=== PATIENT | female | born 1950 | race Hispanic/Latino ===

== ENCOUNTER 2018-10-13 13:44 | Inpatient (IN) | payer SELFPAY ==
[2018-10-13] MEDS ORDERED: Dexamethasone 20 MG/5 ML VIAL ONE (14:47)
[2018-10-13] MEDS ORDERED: Glycopyrrolate 0.2 MG/ML 5 ML SYRINGE ONE (14:47)
[2018-10-13] MEDS ORDERED: Ondansetron PF 4 MG/2 ML Vial ONE ×2 (14:47→15:47)
[2018-10-13] MEDS ORDERED: Rocuronium Bromide 10 MG/ML (10ML VIAL) ONE (14:47)
[2018-10-13] MEDS ORDERED: Lidocaine 1% PF 5 ML VIAL ONE (14:47)
[2018-10-13] MEDS ORDERED: PROPOFOL 200 MG/20 ML VIAL ONE (14:47)
[2018-10-13 14:54] LABS: Mean Corpuscular Hemoglobin 28.6 pg (27.0-31.0); Mean Corpuscular Volume 86.5 fL (78.0-98.0); Mean Platelet Volume 7.5 fL (7.4-10.4); Platelet Count 201 thou/uL (130-400); RBC Distribution Width 13.9 % (11.5-14.5); Red Blood Cell (RBC) Count 2.12 mill/uL (4.20-5.40); White Blood Cell (WBC) Count 14.9 thou/uL (4.8-10.8)
[2018-10-13 15:01] LABS: AST (SGOT) 14 U/L (5-34); Anion Gap 19 mmol/L (10-20); Bilirubin, Total 0.2 mg/dL (0.2-1.2); Calcium 8.3 mg/dL (7.8-10.44); Carbon Dioxide 14 mmol/L (23-31); Chloride 105 mmol/L (98-107); Potassium 5.4 mmol/L (3.5-5.1); Protein, Total 6.4 g/dL (6.0-8.3); Sodium 133 mmol/L (136-145)
[2018-10-13 15:17] LABS: ALT (SGPT) Less than 7 U/L (8-55); Albumin 2.8 g/dL (3.4-4.8); Alkaline Phosphatase 84 U/L (40-150); BUN (Urea Nitrogen) 57 mg/dL (9.8-20.1); Calc. Creatinine Clearance 0 mL/min (70-130); Estimated GFR-MDRD 7; Globulin 3.5 g/dL (2.4-3.5); Glucose 65 mg/dL (80-115); Lipase 117 U/L (8-78)
[2018-10-13 15:19] LABS: Band 33 % (5-11); Hypochromia SLIGHT = 6-15 cells (100X) (0-5/hpf); Lymphocytes 3 % (21-51); MDiff Complete? YES; Neutrophil 64 % (42-75); Platelet Morphology Comment Appears Adequate; Polychromasia SLIGHT = 2-3 cells (100X) (0-2/hpf)
--- NOTE | 2018-10-13 16:13 | CT ---
CT ABDOMEN AND PELVIS WITHOUT CONTRAST: 10/13/2018 PROVIDED CLINICAL HISTORY: Pelvic pain. FINDINGS: The visualized lung bases are free of significant opacity. There is bilateral severe hydronephrosis and severe hydroureter. There is a 6-7 mm calculus present within the proximal left ureter, at the level of the L3 vertebral body. The liver, spleen, pancreas, and adrenal glands appear unremarkable, suboptimally evaluated in the absence of IV contrast materia l. There are inflammatory changes present within the right lower quadrant, with foci of gas that appear to be extraluminal. The appendix is not distinctly identified. No definite focal fluid collection i s evident. The urinary bladder appears prominently enlarged. The osseous structures demonstrate no concerning lytic or blastic lesions. IMPRESSION: 1. Inflammatory fat stranding changes, extraluminal gas, and nonorganized extraluminal fluid present within the right lower quadrant, compatible with a perforated viscus. Differential considerations w ould include perforated appendicitis versus perforated colitis. Surgical consultation is recommended . 2. Severe bilateral hydronephrosis and hydroureter with an enlarged urinary bladder. There is a 6 t o 7 mm proximal left ureteral calculus; however, the entire ureter is dilated, and this does not appe ar to be the primary etiology of the hydronephrosis on the left. 3. Other chronic findings as above. 4. Findings were discussed with Dr. Child, via telephone, at 4:02 p.m. on 10/13/2018. CODE CR POS: [facility]
[2018-10-13] MEDS ORDERED: Piperacillin/Tazobactam 3.375 GM VIAL ONE (16:18)
[2018-10-13] MEDS ORDERED: Dextrose 50% Abboject 50 ML SYRINGE ONE (16:26)
[2018-10-13] MEDS ORDERED: Morphine 4 MG/ML VIAL ONE (16:50)
[2018-10-13 17:10] LABS: Bilirubin Negative (Negative); Blood, Urine Small (Negative); Clarity CLOUDY (Clear); Glucose, Urine (Dipstick) Negative (Negative); Leukocyte Large (Negative); Nitrite Negative (Negative); Protein, Urine (Dipstick) 30 mg/dL (Neg-Trace); Urobilinogen 0.2 mg/dL (0.2-1.0)
[2018-10-13 17:12] LABS: Bacteria/HPF 4+ HPF (None Seen); Hyaline Casts/LPF 7-10 HYALINE CAST LPF (0-3 Hyaline); Pathc Cast-AUWi Flag 1.76 (0-2.49); RBC/HPF 0-3 HPF (0-3); Squamous Epithelial 0-3 HPF (0-3)
--- NOTE | 2018-10-13 17:36 | HP ---
CHIEF COMPLAINT: Perforated viscus. HISTORY OF PRESENT ILLNESS: This is a 68-year-old female with a history of nausea, vomiting, and abdominal pain in the lower abdomen for the last several days. She presents with CT scan showing free air in the right lower quadrant, lots of strandy changes. She has also been found to be in acute renal insufficiency. The patient herself has no medical history. She denies taking any medicines every day. She never goes to the doctor, but specifically denies any issues with any previous abdominal surgery, any chronic kidney or heart disease. Denies diabetes. She has no family here, they are all in [place]. PAST MEDICAL HISTORY: Like above. PAST SURGICAL HISTORY: Above. MEDICINES: None. ALLERGIES: NO KNOWN DRUG ALLERGIES. SOCIAL HISTORY: She denies smoking or alcohol. REVIEW OF SYSTEMS: Otherwise negative unless described above. PHYSICAL EXAMINATION: VITAL SIGNS: Her pulse is 106, blood pressure is 120/84. She is afebrile. HEENT: Sclerae anicteric. Oropharynx clear. NECK: No lymphadenopathy. CHEST: Clear. HEART: Increased rate, regular rhythm without murmur. ABDOMEN: Soft. Diffused tender in the bilateral lower abdomen with guarding, rebound tenderness in the right lower quadrant. EXTREMITIES: No obvious ischemia or edema to extremities. LABORATORY DATA: White blood cell count is 14 with 33 bands, hemoglobin is 6, and platelet count is 201. Sodium 133, potassium 5.4, creatinine is 5.74, BUN is 57, lipase 117. ASSESSMENT: 1. Ruptured viscus. 2. Acute renal insufficiency, likely prerenal. 3. Unfortunately, her medical history is unknown. PLAN: She will need exploratory laparotomy. Dr. Cantrell said that she is safe to undergo surgery. Risks, benefits, and alternatives were discussed. She gives consent. We will give her 1 unit of blood. Job ID: [id number]
[2018-10-13] MEDS ORDERED: Lidocaine 2% Jelly 5 ML TUBE ONE (18:04)
[2018-10-13] MEDS ORDERED: Fentanyl 100 MCG/2 ML VIAL ONE ×2 (18:04)
[2018-10-13] MEDS ORDERED: Promethazine HCl 25 MG/ML VIAL IM PRN ×2 (20:06→20:58)
[2018-10-13] MEDS ORDERED: Ondansetron HCl/PF 4 MG/2 ML Vial IVP PRN (20:06)
[2018-10-13] MEDS ORDERED: Promethazine HCl 25 MG/ML VIAL SLOW IVP PRN (20:06)
--- NOTE | 2018-10-13 20:41 | OP ---
DATE OF PROCEDURE: 10/13/2018 PREOPERATIVE DIAGNOSIS: Ruptured sigmoid diverticulitis. POSTOPERATIVE DIAGNOSIS: Ruptured sigmoid diverticulitis. PROCEDURES PERFORMED: Sigmoid colectomy and colostomy by Dr. Raymundo without complication. ANESTHESIA: General. ESTIMATED BLOOD LOSS: Minimal. COMPLICATIONS: None. SPECIMEN: Colon. FINDINGS: There is one area of the colon with a large mouth ruptured diverticulum, purulence in the abdomen, no significant fecal peritonitis. DESCRIPTION OF PROCEDURE: The patient was taken to the operating room and laid supine on the operating room table. After general anesthetic was obtained, the abdomen was shaved, prepped, and draped in a sterile fashion. A midline incision was made. Abdominal cavity was entered without injury. NG tube was felt to be in good position in the stomach. There was purulence in the pelvis, mostly around the sigmoid colon, a small amount down around the appendix as well. The appendix and cecum were without evidence of inflammation or infection. There was no obvious mass in the entire exam of the colon. There were some nodular changes to the uterus down below the rectum, low sigmoid . The sigmoid colon is affixed to the left pelvic sidewall. In this area, there was a ruptured diverticulum. Pulling this away, there was free flow of stool into the abdomen. Contour stapler fired across the lower sigmoid colon below this. The peritoneal reflection was taken down. The left ureter was found and excluded from the dissection. Impact LigaSure was used to take the blood vessels going up the left colon after enough length was obtained in order to make a colostomy proximal. The abdomen was irrigated copiously using warm sterile solution until returns were clear. There was no other damage to any intraabdominal structures. The small bowel was run without injury. Ellipse of skin was taken out in the left abdomen. Cautery dissected down to the fascia and a cruciate incision was made in the fascia. The proximal colon was brought out through this site and held in place using a Assonet. Midline fascia was closed using #1 PDS from top to bottom and tied in the middle. Subcutaneous tissues were irrigated copiously using sterile solution. The skin was closed using skin clips and skin tomas with Telfa jose placed in between. The colon was cut just at the level of the skin. The specimen was sent to [facility] for final diagnosis. The colostomy was matured in the usual fashion using 3-0 Vicryl. An ostomy device was placed. The patient was sent to Recovery in stable condition. All instrument counts, needle counts, and lap counts were correct. Job ID: [id number]
[2018-10-13] MEDS ORDERED: Ondansetron PF 4 MG/2 ML Vial IVP PRN (20:58)
[2018-10-13] MEDS ORDERED: hydrALAZINE 20 MG/ML VIAL SLOW IVP PRN (20:58)
[2018-10-13] MEDS ORDERED: Dextrose 50% Abboject 50 ML SYRINGE SLOW IVP PRN (20:58)
[2018-10-13] MEDS ORDERED: Dextrose 5% in Water 1,000 ML IV PRN (20:58)
[2018-10-13] MEDS ORDERED: Ondansetron ODT 4 MG TAB PO PRN (20:58)
[2018-10-13] MEDS ORDERED: HumaLOG 300 UNITS/3 ML VIAL SC PRN (20:58)
[2018-10-13] MEDS ORDERED: Famotidine/PF 20 mg/2ml Vial SLOW IVP SCH ×2 (21:00→21:15)
[2018-10-13] MEDS: Fentanyl 100 MCG/2 ML VIAL SLOW IVP PRN (21:32)
[2018-10-13] MEDS: Acetaminophen 1,000 MG in Premix Bag 1 BAG IVPB PRN (21:34)
[2018-10-13] MEDS: Sodium Chloride 0.9% 1,000 ML IV SCH (21:35)
[2018-10-13 22:04] LABS: Vitamin B12 Greater than 2000 pg/mL (211-911)
[2018-10-13 23:03] LABS: Anion Gap 17 mmol/L (10-20); BUN (Urea Nitrogen) 52 mg/dL (9.8-20.1); Calc. Creatinine Clearance 8 mL/min (70-130); Calcium 8.2 mg/dL (7.8-10.44); Carbon Dioxide 13 mmol/L (23-31); Chloride 109 mmol/L (98-107); Estimated GFR-MDRD 8; Glucose 79 mg/dL (80-115); Potassium 5.4 mmol/L (3.5-5.1); Sodium 134 mmol/L (136-145)
--- NOTE | 2018-10-14 03:35 | CON ---
DATE OF CONSULTATION: 10/13/2018 CONSULTING PHYSICIAN: Dr. Child from ER and Dr. Raymnudo. REASON FOR CONSULT: Acute kidney injury, hyperkalemia. REASON FOR ADMISSION: Abdominal pain, pelvic pain. HISTORY OF PRESENT ILLNESS: This is a 68-year-old female with unknown past medical history with no regular medical followup, came to the hospital with abdominal pain. The patient apparently was fighting with this pain and urinary incontinence, overflow incontinence for the last 1 to 2 weeks and was actually seen in a clinic in [place] and some urine tests was done and was sent home. The patient apparently felt better and was taken to the hospital today and she had a CT scan, which showed bilateral hydronephrosis, elevated creatinine of 5.7 with a potassium of 5.4 and distended bladder. Garcia was inserted. She has also had a CT scan without contrast, which showed possible perforated viscus and plan is for emergent dialysis. Dr. Raymundo is planning to have emergent dialysis. PAST MEDICAL HISTORY: Not known. The patient denies any significant history. PAST SURGICAL HISTORY: None. HOME MEDICATIONS: None at this point. ALLERGIES: NO KNOWN DRUG ALLERGIES. SOCIAL HISTORY: Denies smoking or alcohol. FAMILY HISTORY: No significant disease. REVIEW OF SYSTEMS: CONSTITUTIONAL: Negative for weight loss or gain, ability to conduct usual activities. SKIN: Negative for rash, itching. EYES: Negative for double vision, pain. ENT/MOUTH: Negative for nose bleeding, neck stiffness, pain, tenderness. CARDIOVASCULAR: Negative for palpitations, dyspnea on exertion, orthopnea. RESPIRATORY: Negative for shortness of breath, wheezing, cough, hemoptysis, fever or night sweats. GASTROINTESTINAL: Negative for poor appetite, abdominal pain, heartburn, nausea, vomiting, constipation, or diarrhea. GENITOURINARY: Negative for urgency, frequency, dysuria, nocturia. MUSCULOSKELETAL: Negative for pain, swelling. NEUROLOGIC/PSYCHIATRIC: Negative for anxiety, depression. ALLERGY/IMMUNOLOGIC: Negative for skin rash, bleeding tendency. PHYSICAL EXAMINATION: GENERAL: This is a thin built female, in no apparent distress. VITAL SIGNS: Temperature 98.4, pulse 88, respiratory rate 18, and blood pressure 111/55. HEENT: Atraumatic, normocephalic. NECK: Supple. CV: S1 and S2 heard. RESPIRATORY: Clear. GI: Abdomen is soft, mildly tender. MUSCULOSKELETAL: No tenderness. No edema. DERMATOLOGIC: No skin rash. NEUROLOGIC: Alert and awake. PSYCHIATRIC: Normal mood and affect. LABORATORY DATA: Potassium is 5.4, BUN is 57, creatinine is 5.7, albumin is 2.8. ASSESSMENT AND PLAN: 1. Acute kidney injury, multifactorial, most likely prerenal plus urinary obstruction. Agree with Garcia for now. IV hydration as tolerated. Repeat labs closely. 2. Hyponatremia. 3. Hyperkalemia. Limit potassium. 4. Metabolic acidosis. 5. Hypoalbuminemia. Check urine studies. 6. Anemia. We will check iron studies and B12. 7. Pyuria. Follow up cultures. Continue antibiotic. Continue supportive care. Avoid nephrotoxins and recheck labs. No acute indication for dialysis. Monitor renal function after the Garcia placement and the urine output, she made almost 700 to 800 mL of urine after the Garcia placed within 2 hours. We will continue to follow. Thank you for the consult. Job ID: [id number]
[2018-10-14] MEDS: Sodium Chloride 0.9% 1,000 ML IV SCH (05:08)
[2018-10-14 05:49] LABS: Anion Gap 11 mmol/L (10-20); BUN (Urea Nitrogen) 53 mg/dL (9.8-20.1); Calc. Creatinine Clearance 8 mL/min (70-130); Calcium 8.4 mg/dL (7.8-10.44); Carbon Dioxide 17 mmol/L (23-31); Chloride 111 mmol/L (98-107); Estimated GFR-MDRD 9; Glucose 79 mg/dL (80-115); Iron Binding Capacity, Total 130 mcg/dL (265-497); Potassium 5.6 mmol/L (3.5-5.1); Sodium 133 mmol/L (136-145)
[2018-10-14 06:04] LABS: Iron Less than 8 ug/dL (50-170)
[2018-10-14] MEDS: Acetaminophen 1,000 MG in Premix Bag 1 BAG IVPB PRN (08:46)
[2018-10-14] MEDS ORDERED: Prevnar 13-Val Conj/PF 0.5 ML SYRINGE IM ONE (09:00)
[2018-10-14 10:20] LABS: Band 32 % (5-11); Hemoglobin 6.7 g/dL (12.0-16.0); Lymphocytes 2 % (21-51); MDiff Complete? YES; Mean Corpuscular HGB CONC 32.4 g/dL (32.0-36.0); Mean Corpuscular Hemoglobin 28.5 pg (27.0-31.0); Mean Corpuscular Volume 87.9 fL (78.0-98.0); Mean Platelet Volume 7.6 fL (7.4-10.4); Monocytes 2 % (0-10); Neutrophil 64 % (42-75); Platelet Count 212 thou/uL (130-400); Platelet Morphology Comment Appears Adequate; RBC Distribution Width 13.7 % (11.5-14.5); Red Blood Cell (RBC) Count 2.34 mill/uL (4.20-5.40)
[2018-10-14 10:43] LABS: Actual Bicarbonate (HCO3a) 11.3 mEq/L (22-28); Base Excess (BEa) -14.4 mEq/L (-2.0 to +3.0); CO2 Tension 26.1 mmHg (35.0-45.0); Carboxyhemoglobin (COHb) 1.4 gm% (0.0-3.0); Hemoglobin (Hb) 7.4 g/dL (12.0-16.0); O2 Tension (PaO2) 84.6 mmHg (> 80.0); pH, Arterial 7.26 (7.35-7.45)
[2018-10-14 11:19] LABS: ALV-art Gradient 32.505 (0-20); Puncture Site RRA
[2018-10-14] MEDS ORDERED: Sodium Bicarbonate 150 MEQ in Dextrose 5% in Water 850 ML IV SCH (11:30)
--- NOTE | 2018-10-14 12:02 | PDOC.GSPN ---
Surgery Progress Note: Subj - Subjective Narrative: Pain controlled, hemodynamically stable. No nausea. Surgery Progress Note: Obj - Vital signs Vital signs: Vital Signs - Most Recent Temp Pulse Resp BP Pulse Ox 97.9 F 100 10/14/18 11:00 10/14/18 07:44 - Physical Exam General: no distress Respiratory: clear to auscultation Abdomen: soft, appropriately tender Wound: dressing clean,dry,intact Surgery Progress Note: Results - Labs Result Diagrams: 10/14/18 08:42 10/14/18 04:40 Lab results: Laboratory Results - last 24 hr 10/14/18 10/14/18 10/14/18 04:40 04:40 08:42 WBC 12.0 H RBC 2.34 L Hgb 6.7 L Hct 20.5 L MCV 87.9 MCH 28.5 MCHC 32.4 RDW 13.7 Plt Count 212 MPV 7.6 Neutrophils % (Manual) 64 Band Neuts % (Manual) 32 H Lymphocytes % (Manual) 2 L Monocytes % (Manual) 2 Plt Morphology Comment Appears Adequate Specimen Type Puncture Site Bicarbonate Actual ABG pH ABG pCO2 ABG pO2 ABG O2 Sat Calc/Juan Carlos ABG O2 Content ABG Base Excess ABG Hematocrit ABG Hemoglobin ABG Oxyhemoglobin ABG Carboxyhemoglobin ABG Methemoglobin ABG Deoxyhemoglobin Dogu Test A-a O2 Gradient Ionized Calcium Mode of Support Inspired O2 Sodium 133 L Potassium 5.6 H Chloride 111 H Carbon Dioxide 17 L Anion Gap 11 BUN 53 H Creatinine 5.01 H Estimated GFR (MDRD) 9 Glucose 79 L Calcium 8.4 Iron Less than 8 L TIBC 130 L % Saturation TNP Ferritin 150.00 10/14/18 10:35 WBC RBC Hgb Hct MCV MCH MCHC RDW Plt Count MPV Neutrophils % (Manual) Band Neuts % (Manual) Lymphocytes % (Manual) Monocytes % (Manual) Plt Morphology Comment Specimen Type ARTERIAL Puncture Site RRA Bicarbonate Actual 11.3 L ABG pH 7.26 L ABG pCO2 26.1 L ABG pO2 84.6 H ABG O2 Sat Calc/Juan Carlos 95.3 ABG O2 Content 9.9 L ABG Base Excess -14.4 L ABG Hematocrit 22.0 L ABG Hemoglobin 7.4 L ABG Oxyhemoglobin 93.7 L ABG Carboxyhemoglobin 1.4 ABG Methemoglobin 0.30 ABG Deoxyhemoglobin 4.6 H Doug Test POSITIVE A-a O2 Gradient 32.505 H Ionized Calcium 1.20 Mode of Support RA Inspired O2 21 Sodium 134 L Potassium 5.30 Chloride 112 H Carbon Dioxide Anion Gap BUN Creatinine Estimated GFR (MDRD) Glucose Calcium Iron TIBC % Saturation Ferritin Surgery Progress Note: A/P - Problem (1) Perforated sigmoid colon Current Visit: Yes Code(s): K63.1 - PERFORATION OF INTESTINE (NONTRAUMATIC) Status: Acute Assessment and Plan: Postop day 1 sigmoid colectomy -NG out tomorrow (2) Acute renal failure Current Visit: Yes Status: Acute Assessment and Plan: Acute on chronic -Appreciate Alina Alford assistance -dialyis - Plan Plan: Hopefully NG out tomorrow and start clears.
[2018-10-14] MEDS: metroNIDAZOLE 500 MG in Premix Bag 1 BAG IVPB SCH ×3 (12:13→23:46)
[2018-10-14 13:12] LABS: HBSAg Index 0.31 S/CO (0-0.99); Hep B Surf Ag Non-Reactive S/CO (NonReactive)
[2018-10-14 13:13] LABS: HBSAB Concentration 0.99 mIU/mL; Hep B Surf AB Non-Reactive (NonReactive)
[2018-10-14] MEDS ORDERED: Sodium Chloride 0.9% 1,000 ML IV SCH (13:30)
--- NOTE | 2018-10-14 13:52 | PRG ---
DATE OF SERVICE: 10/14/2018 SUBJECTIVE: A 68-year-old female, being seen for acute kidney injury. The patient denies any complaints. OBJECTIVE: CONSTITUTIONAL: The patient is awake and alert. VITAL SIGNS: Afebrile, pulse 81, breathing 16, blood pressure 91/51. GENERAL APPEARANCE AND MENTAL STATUS: Fair. HEAD/NECK: Normocephalic. Atraumatic. EYES: EOMI. No deformity. EARS: Clear. No ulcers. NOSE: Intact. No lesions. MOUTH: Clear. No discharge. THROAT: Clear. No exudate. LUNGS: Clear. No crackles. CARDIAC: S1, S2. No rub. ABDOMEN: Benign. Bowel sounds positive. GENITALIA/RECTUM: Garcia absent. BACK/EXTREMITIES: Edema 0+. NEUROLOGICAL: Alert and motor intact. SKIN: LYMPHATICS: LABORATORY DATA: Reviewed. ASSESSMENT AND PLAN: 1. Stage 5 chronic kidney disease with acidosis, plan bicarb drip. 2. Hyperkalemia. Repeat potassium was 5.3. 3. Anemia. We would recommend transfusion. 4. Hydronephrosis. We would recommend Urology consultation. If potassium does not improve, we will consider renal replacement therapy. I have advised the primary team, blood should have high potassium, so we need to monitor potassium closely. Job ID: [id number]
--- NOTE | 2018-10-14 15:39 | ULT ---
BILATERAL UPPER EXTREMITY VENOUS DOPPLER ULTRASOUND FOR DIALYSIS ACCESS: Date: 10/14/18 HISTORY: End-stage renal disease. FINDINGS: RIGHT UPPER EXTREMITY: The right cephalic vein measures 1.9 mm in the proximal arm, 2.7 mm in the mid arm, 2.3 mm in the dis jb arm, 3.4 mm in the antecubital fossa, 1.1 mm in the proximal forearm, 0.8 mm in the mid forearm, and 0.7 mm in the distal forearm. The right basilic vein measures 1.8 mm in the proximal arm, 1.5 mm in the mid arm, 1.5 mm in the dist al arm, 1.8 mm in the antecubital fossa, 1.4 mm in the proximal forearm, 1.1 mm in the mid forearm, a nd 0.8 mm in the distal forearm. The right brachial artery measures 4.9 mm, radial artery measures 2.4 mm, and ulnar artery measures 1 .4 mm. LEFT UPPER EXTREMITY: The left cephalic vein in the proximal arm and the proximal forearm are not seen. The left cephalic v ein in the mid arm measures 1.6 mm, 0.8 mm in the distal arm, 1.4 mm in the antecubital fossa, 1.0 mm in the mid forearm, and 1.1 mm in the distal forearm. The left basilic vein measures in the proximal arm is not visualized. It measures 4.4 mm in the mid a rm, 1.9 mm in the distal arm, 1.8 mm in the antecubital fossa, 1.6 mm in the proximal forearm, 1.4 mm in the mid forearm, and 1.0 mm in the distal forearm. The left brachial artery measures 4.2 mm, radial artery measures 2.2 mm, and ulnar artery measures 1. 4 mm. POS: [facility]
--- NOTE | 2018-10-14 16:01 | PDOC.PULCN ---
Pulmonology Consult: HPI - Date of Consult Date: 10/14/18 Time: 10:00 - Consult Details Reason for Consult: Sepsis Requesting Physician: Breanne - History of Present Illness HPI: ECTOR MEYER is a 68 year-old F w/ unknown PMH presented to ED with NV and RLQ pain, discovered to have abnormal ct abdomen and subsequently discovered perforated viscus during ex lap resulting in hemicolectomy. CT scan noted b/l hydronephrosis and on admission pt noted to be anemic, transfused 1U prbcs. Today pt has no complaints although on speaking with pt she does report an approx 1 year history of vaginal bleeding which could be contributing to the anemia. Pulmonology Consult: ROS - Review of Systems Constitutional: negative: fever, chills Cardiovascular: negative: chest pain, palpitations Respiratory: no reported symptoms Pulmonology Consult: PMH Past Medical History: unknown - Family History Family history: reviewed and not pertinent - Social History Smoking Status: Never smoker Alcohol Use: pt denies any use Drug Use History: none Living Situation: independent Pulmonology Consult: Meds - Medications MAR Reviewed: Yes Medications: Current Medications Albuterol/Ipratropium (Duoneb) 3 ml NEB Q4H PRN PRN Reason: Wheezing Dextrose/Water (Dextrose 50%) 25 gm SLOW IVP PRN PRN PRN Reason: Hypoglycemia Famotidine (Pepcid) 20 mg SLOW IVP QPM SANDRA Fentanyl (Sublimaze) 25 mcg SLOW IVP Q2H PRN PRN Reason: Mild Pain (1-3) Fentanyl (Sublimaze) 50 mcg SLOW IVP Q2H PRN PRN Reason: Moderate to Severe Pain (6-10) Last Admin: 10/13/18 21:32 Dose: 50 mcg Glucagon (Glucagon) 1 mg IM PRN PRN PRN Reason: Hypoglycemia Hydralazine HCl (Apresoline) 10 mg SLOW IVP Q4H PRN PRN Reason: SBP > 170 or DBP > 100 Acetaminophen 1,000 mg/ Device 100 mls @ 400 mls/hr IVPB Q6H PRN PRN Reason: Fever/Mild Pain Stop: 10/14/18 20:59 Last Admin: 10/14/18 08:46 Dose: 100 mls Dextrose/Water (D5w) 1,000 mls @ 0 mls/hr IV .Q0M PRN PRN Reason: Hypoglycemia Metronidazole 500 mg/ Device 100 mls @ 100 mls/hr IVPB Q6HR SANDRA Last Admin: 10/14/18 12:13 Dose: 100 mls Ciprofloxacin/Dextrose 400 mg/ (Device) 200 mls @ 200 mls/hr IVPB 1000 SANDRA Last Admin: 10/14/18 10:10 Dose: 200 mls Sodium Bicarbonate 150 meq/ (Dextrose/Water) 1,000 mls @ 75 mls/hr IV [facility] Stop: 10/15/18 00:49 Last Admin: 10/14/18 12:13 Dose: 1,000 mls Insulin Human Lispro (Humalog) 0 units SC .MILD SLIDING SCALE PRN PRN Reason: Mild Correctional Scale Ondansetron HCl (Zofran Odt) 4 mg PO Q6H PRN PRN Reason: Nausea/Vomiting Ondansetron HCl (Zofran) 4 mg IVP Q6H PRN PRN Reason: Nausea Promethazine HCl (Phenergan) 12.5 mg IM Q4H PRN PRN Reason: Nausea Sodium Chloride (Flush - Normal Saline) 10 ml IVF PRN PRN PRN Reason: Saline Flush - Allergies Allergies/Adverse Reactions: Allergies Allergy/AdvReac Type Severity Reaction Status Date / Time No Known Allergies Allergy Verified 10/14/18 01:15 Pulmonology Consult: PE - Physical Exam Constitutional: NAD HEENT: PERRLA, moist MMs Neck: no nodes, no JVD Cardiovascular: RRR, no significant murmur Respiratory: clear to auscultation anteriorly, clear to auscultation bilaterally Gastrointestinal: soft Deviation from normal: TTP, sluggish BS Musculoskeletal: no edema, pulses present Neurological: non-focal, moves all 4 limbs Psychiatric: normal affect Skin: no rash, cap refill <2 seconds Pulmonology Consult: Results - Labs Result Diagrams: 10/15/18 04:25 10/15/18 04:25 - ABG Interpretation Attestation: I reviewed and interpreted this ABG. ABG Results: ABG pH 7.26 (7.35-7.45) L 10/14/18 10:35 ABG pCO2 26.1 mmHg (35.0-45.0) L 10/14/18 10:35 ABG O2 Sat Calc/Juan Carlos 95.3 % (94.0-98.0) 10/14/18 10:35 ABG Base Excess -14.4 mEq/L (-2.0 to +3.0) L 10/14/18 10:35 Interpretation: metabolic acidosis Pulmonology Consult: A/P - Time Time: 50% of the time was spent in coordination of care (as documented) at patient's floor/unit and/or counseling patient. Time with Patient: greater than 50 minutes - Plan Plan: 1) severe sepsis 2/2 perforated viscous - rx cipro flagyl - pt maintaining MAP and s/p 2L NS - continue to monitor UOP and pressures. - Likely ok to transfer out of ICU later today pending stable BP throughout day 2)KIM: likely mixed etiology - ct showed b/l hydronephrosis, stone noted; however ureteral dilation was entire ureter and distended bladder not c/w stone. 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 Collins. I agree with the History, Examination, Assessment and Plan documented above with any addition or exceptions noted below. 70 minutes have been devoted to this patient in various activities. I personally reviewed all imaging studies and laboratory data noted within this document. For fifty percent of this time, I was interacting with the patient at the bedside or coordinating care with the care team. For the remainder of the time I was immediately available to the patient in the hospital unit.
[2018-10-14] MEDS: Famotidine/PF 20 mg/2ml Vial SLOW IVP SCH (21:35)
[2018-10-15] MEDS: metroNIDAZOLE 500 MG in Premix Bag 1 BAG IVPB SCH (05:06)
[2018-10-15 06:40] LABS: Anion Gap 13 mmol/L (10-20); BUN (Urea Nitrogen) 55 mg/dL (9.8-20.1); Calc. Creatinine Clearance 10 mL/min (70-130); Calcium 8.2 mg/dL (7.8-10.44); Carbon Dioxide 18 mmol/L (23-31); Chloride 112 mmol/L (98-107); Estimated GFR-MDRD 10; Glucose 112 mg/dL (80-115); Magnesium 1.7 mg/dL (1.6-2.6); Potassium 4.7 mmol/L (3.5-5.1); Sodium 138 mmol/L (136-145)
[2018-10-15 06:43] LABS: Band 3 % (5-11); Hemoglobin 7.9 g/dL (12.0-16.0); Hypochromia SLIGHT = 6-15 cells (100X) (0-5/hpf); Lymphocytes 2 % (21-51); MDiff Complete? YES; Mean Corpuscular HGB CONC 32.7 g/dL (32.0-36.0); Mean Corpuscular Hemoglobin 29.1 pg (27.0-31.0); Mean Corpuscular Volume 88.8 fL (78.0-98.0); Mean Platelet Volume 7.4 fL (7.4-10.4); Monocytes 1 % (0-10); Neutrophil 94 % (42-75); Platelet Count 236 thou/uL (130-400); Platelet Morphology Comment Appears Adequate; RBC Distribution Width 13.6 % (11.5-14.5); Red Blood Cell (RBC) Count 2.72 mill/uL (4.20-5.40); White Blood Cell (WBC) Count 13.5 thou/uL (4.8-10.8)
[2018-10-15] MEDS: Sodium Chloride 0.9% 1,000 ML IV SCH (07:17)
[2018-10-15] MEDS: Fentanyl 100 MCG/2 ML VIAL SLOW IVP PRN ×5 (07:51→23:46)
[2018-10-15 08:56] LABS: Phosphorus 5.4 mg/dL (2.3-4.7)
[2018-10-15] MEDS ORDERED: Magnesium 2 GM/50 ML 2 GM in Premix Bag 1 BAG IVPB SCH (10:00)
--- NOTE | 2018-10-15 10:13 | PRG ---
DATE OF SERVICE: 10/15/2018 SERVICE: Pulmonary Medicine. INTERVAL HISTORY: The patient is doing fine from respiratory standpoint. Her abdominal discomfort is a little bit worse today. Denies any chest pain, fevers, or chills. She is yet to have anything out of her ostomy. That being said, she indicates that she is hungry. There has been no interval change to her condition otherwise. Her urine output has been excellent. PHYSICAL EXAMINATION: VITAL SIGNS: Afebrile. Pulse 79, blood pressure 113/60, respirations 16, saturation 96% on room air. GENERAL: The patient is awake and alert, in no apparent distress. LUNGS: Decent air entry. There is no prolonged expiratory phase. No crackles or wheezing appreciated. HEART: Normal rate and regular. ABDOMEN: Soft. Tender to palpation throughout. Bowel sounds are hypoactive. There is no guarding. LABORATORY DATA: WBC 13.5, hemoglobin 7.9, showing an appropriate rise with the unit of blood she got, platelets 236,000. Neutrophil count is 94% on top of 3% bands. Band count has precipitously fallen. Creatinine 4.21 and downtrending, BUN is stable at 55. Bicarb is up trending, chloride 112 and stable. Sodium 138. Basic metabolic profile is otherwise unremarkable except for a magnesium of 1.7. Potassium has fallen to 4.7. Urinalysis is positive for pyuria. Urine culture is growing E. coli. This is an organism that is sensitive to Zosyn and meropenem. ASSESSMENT: 1. Severe sepsis, resolving. 2. Gross peritonitis secondary to perforated viscus. 3. Acute kidney injury. 4. Iron-deficiency anemia. 5. Dysfunctional uterine bleeding. DISCUSSION AND PLAN: I will replace magnesium and switch over to half-normal saline at 75 an hour. She will need an outpatient ADVERTISING DIRECTOR consultation. Antibiotics will be switched from Cipro and Flagyl over to meropenem, so that we cover this organism a little bit more specifically. At this point, she is stable for transition to the surgical unit. When she arrives there, she will have no further requirements for inpatient Pulmonary critical care opinion, and I will sign off. Please call with additional questions or concerns through time. Job ID: [id number]
[2018-10-15] MEDS: Sodium Chloride 0.45% 1,000 ML IV SCH ×2 (10:14→23:47)
[2018-10-15] MEDS: MEROPENEM 1 GM/50 ML 1 GM in Premix Bag 1 BAG IVPB SCH (10:34)
--- NOTE | 2018-10-15 10:53 | PDOC.GSPN ---
Surgery Progress Note: Subj - Subjective Patient reports: still having pain Narrative: 68 y/o female presents for bowel perforation and acute kidney injury. No new complaints today, but still having pain, which has been improved with Fentanyl. Has been tolerating ice chips PO. Producing urine, no colostomy output. Faroese speaking only, family at bedside. Surgery Progress Note: Obj - Vital signs Vital signs: Vital Signs - Most Recent Temp Pulse Resp BP Pulse Ox 98.3 F 84 20 107/58 L 96 10/15/18 09:00 10/14/18 18:49 10/14/18 18:49 10/14/18 18:49 10/15/18 08:00 - Physical Exam General: no distress, other (mild pain) ENT: normal mucosa, other (NGT in place, minimal output today) Cardiovascular: regular rate and rhythm, no murmur Respiratory: clear to auscultation, normal expansion, normal respiratory effort , breath sounds present Abdomen: soft, other (mild diffuse tenderness to palpation, hypoactive bowel sounds. Colostomy in place with no output, healthy appearing bowel.) Genitourinary (Female): other (Garcia catheter in place, with 250 ml output since this morning at 0700) Surgery Progress Note: Results - Labs Result Diagrams: 10/15/18 04:25 10/15/18 04:25 Lab results: Laboratory Results - last 24 hr 10/15/18 10/15/18 10/15/18 04:25 04:25 04:25 WBC 13.5 H RBC 2.72 L Hgb 7.9 L Hct 24.2 L MCV 88.8 MCH 29.1 MCHC 32.7 RDW 13.6 Plt Count 236 MPV 7.4 Neutrophils % (Manual) 94 H Band Neuts % (Manual) 3 L Lymphocytes % (Manual) 2 L Monocytes % (Manual) 1 Hypochromia SLIGHT = 6-15 cells Plt Morphology Comment Appears Adequate Sodium 138 Potassium 4.7 Chloride 112 H Carbon Dioxide 18 L Anion Gap 13 BUN 55 H Creatinine 4.21 H Estimated GFR (MDRD) 10 Glucose 112 Calcium 8.2 Phosphorus 5.4 H Magnesium 1.7 Surgery Progress Note: A/P - Problem (1) Perforated sigmoid colon Current Visit: Yes Code(s): K63.1 - PERFORATION OF INTESTINE (NONTRAUMATIC) Status: Acute Assessment and Plan: Tolerating ice chips PO. No NGT output, no colostomy output. Hypoactive bowel sounds. Pain controlled with Fentanyl prn. Cleared to remove NGT and start PO liquids. (2) Acute renal failure Current Visit: Yes Status: Acute Assessment and Plan: Increasing urine output. Hold dialysis. - Plan Plan: Cleared by Dr. Mancia for move to [place] [id number]. Pt requesting note for daughter from [place] to care for her. Addendum - Physician - Physician Attestation Date/Time: 10/15/18 1237 I personally performed or re-performed the physical examination and medical decision making. I have verified all student documentation or findings, including history, physical exam and/or medical decision making.
--- NOTE | 2018-10-15 13:08 | PRG ---
DATE OF SERVICE: 10/15/2018 SUBJECTIVE: A 68-year-old female being seen for acute kidney injury. The patient denied nausea, vomiting, or chest pain. OBJECTIVE: CONSTITUTIONAL: The patient is awake, alert, in no acute distress. VITAL SIGNS: Afebrile. Pulse 84, breathing 16, blood pressure 128/68. GENERAL APPEARANCE AND MENTAL STATUS: Fair. HEAD/NECK: Normocephalic. Atraumatic. EYES: EOMI. No deformity. EARS: Clear. No ulcers. NOSE: Intact. No lesions. MOUTH: Clear. No discharge. THROAT: Clear. No exudate. LUNGS: Clear. No crackles. CARDIAC: S1, S2. No rub. ABDOMEN: Benign. Bowel sounds positive. GENITALIA/RECTUM: Garcia absent. BACK/EXTREMITIES: Edema 0+. NEUROLOGICAL: Alert and motor intact. SKIN: LYMPHATICS: LABORATORY DATA: Lab showed hemoglobin 7.9, creatinine 4.2. IMPRESSION AND PLAN: 1. Acute kidney injury, improved. 2. Hypertension, stable. 3. Anemia, stable. 4. Hyperlipidemia, stable. 5. Metabolic acidosis. Continue bicarbonate. No indication for dialysis. Job ID: [id number]
[2018-10-15] MEDS: Famotidine/PF 20 mg/2ml Vial SLOW IVP SCH (20:21)
[2018-10-16] MEDS: Fentanyl 100 MCG/2 ML VIAL SLOW IVP PRN ×4 (04:43→19:58)
[2018-10-16 05:38] LABS: Anion Gap 13 mmol/L (10-20); BUN (Urea Nitrogen) 46 mg/dL (9.8-20.1); Calc. Creatinine Clearance 13 mL/min (70-130); Carbon Dioxide 16 mmol/L (23-31); Chloride 110 mmol/L (98-107); Estimated GFR-MDRD 13; Potassium 5.1 mmol/L (3.5-5.1); Sodium 134 mmol/L (136-145)
[2018-10-16 05:43] LABS: Glucose 59 mg/dL (80-115)
[2018-10-16 05:57] LABS: Band 13 % (5-11); Hemoglobin 7.9 g/dL (12.0-16.0); Lymphocytes 6 % (21-51); MDiff Complete? YES; Mean Corpuscular HGB CONC 31.8 g/dL (32.0-36.0); Mean Corpuscular Hemoglobin 28.7 pg (27.0-31.0); Mean Corpuscular Volume 90.2 fL (78.0-98.0); Mean Platelet Volume 6.9 fL (7.4-10.4); Monocytes 4 % (0-10); Neutrophil 77 % (42-75); Platelet Count 246 thou/uL (130-400); Platelet Morphology Comment Appears Adequate; RBC Distribution Width 13.8 % (11.5-14.5); Red Blood Cell (RBC) Count 2.75 mill/uL (4.20-5.40); White Blood Cell (WBC) Count 14.9 thou/uL (4.8-10.8)
[2018-10-16] MEDS: MEROPENEM 1 GM/50 ML 1 GM in Premix Bag 1 BAG IVPB SCH (10:09)
[2018-10-16] MEDS ORDERED: Sodium Chloride 0.45% 1,000 ML IV SCH (11:48)
--- NOTE | 2018-10-16 12:17 | PRG ---
DATE OF SERVICE: 10/16/2018 SERVICE: Pulmonary Medicine. INTERVAL HISTORY: The patient is doing fine from respiratory standpoint. Breathing comfortably. Denies any current chest pain, fevers, or chills. She is going to the floor today. She finally got a room. Otherwise, her belly pain is much better. She continues to make urine and has no other complaints. PHYSICAL EXAMINATION: VITAL SIGNS: Afebrile, pulse 91, blood pressure 125/64, respirations are 21, and saturation 98% on room air. GENERAL: The patient is awake and alert, in no apparent distress. LUNGS: Excellent air entry. No prolonged expiratory phase or wheezing present. No crackles. HEART: Normal rate and regular. ABDOMEN: Soft, nontender, and nondistended. Bowel sounds are positive. MUSCULOSKELETAL: No cyanosis or clubbing. No pitting in the bilateral lower extremities. NEUROLOGIC: Grossly nonfocal. LABORATORY DATA: WBC 14.9, hemoglobin 7.9 and stable, and platelets are 246,000. Creatinine downtrending to 3.45, potassium 5.1, sodium 134. Basic metabolic profile is otherwise unremarkable. Bicarb is gently downtrending to 16, though the anion gap stays stable. Phosphorus 5.4. Blood sugar ranges from 95 to 59. ASSESSMENT: 1. Severe sepsis, resolving. 2. Gross peritonitis secondary to perforated viscus, status post laparotomy. 3. Acute kidney injury. 4. Iron-deficiency anemia. 5. Dysfunctional uterine bleeding. DISCUSSION AND PLAN: We will drop our half-normal saline to 50 mL/hr. Antibiotic coverage will continue. At this point, the patient has no requirements for inpatient Pulmonary Critical Care opinion. When she lands on the floor, I will sign off. Please call with additional questions or concerns through time. Were she to having recrudescence in her sepsis profile, antifungal coverage should be considered. Job ID: [id number]
[2018-10-16] MEDS ORDERED: Sodium Bicarbonate 150 MEQ in Dextrose 5% in Water 1,000 ML IV SCH (12:30)
--- NOTE | 2018-10-16 12:35 | PRG ---
DATE OF SERVICE: 10/16/2018 SUBJECTIVE: A 68-year-old female being seen for acute kidney injury. The patient denies any nausea, vomiting, or chest pain. OBJECTIVE: CONSTITUTIONAL: The patient is awake, alert, in no acute distress. VITAL SIGNS: Afebrile. Pulse 85, breathing 16, blood pressure 125/64. GENERAL APPEARANCE AND MENTAL STATUS: Fair. HEAD/NECK: Normocephalic. Atraumatic. EYES: EOMI. No deformity. EARS: Clear. No ulcers. NOSE: Intact. No lesions. MOUTH: Clear. No discharge. THROAT: Clear. No exudate. LUNGS: Clear. No crackles. CARDIAC: S1, S2. No rub. ABDOMEN: Benign. Bowel sounds positive. GENITALIA/RECTUM: Garcia absent. BACK/EXTREMITIES: Edema 0+. NEUROLOGICAL: Alert and motor intact. SKIN: LYMPHATICS: LABORATORY DATA: Reviewed. IMPRESSION AND PLAN: 1. Chronic kidney injury, stage 5, stable. 2. Acute kidney injury, improving. 3. Metabolic acidosis, on bicarbonate drip. 4. Hyperkalemia, stable. No indication for dialysis at this time. Job ID: [id number]
--- NOTE | 2018-10-16 13:29 | PDOC.GSPN ---
Surgery Progress Note: Subj - Subjective Patient reports: no new complaints (no nausea) Surgery Progress Note: Obj - Vital signs Vital signs: Vital Signs - Most Recent Temp Pulse Resp BP Pulse Ox 97.6 F 93 16 137/75 100 10/16/18 12:10 10/16/18 12:10 10/16/18 12:10 10/16/18 12:10 10/16/18 12:10 - Physical Exam General: no distress Cardiovascular: regular rate and rhythm Respiratory: clear to auscultation Abdomen: soft, appropriately tender (wounds healing well, jose removed) Surgery Progress Note: Results - Labs Result Diagrams: 10/16/18 04:51 10/16/18 04:51 Lab results: Laboratory Results - last 24 hr 10/16/18 10/16/18 10/16/18 04:51 04:51 06:53 WBC 14.9 H RBC 2.75 L Hgb 7.9 L Hct 24.8 L MCV 90.2 MCH 28.7 MCHC 31.8 L RDW 13.8 Plt Count 246 MPV 6.9 L Neutrophils % (Manual) 77 H Band Neuts % (Manual) 13 H Lymphocytes % (Manual) 6 L Monocytes % (Manual) 4 Plt Morphology Comment Appears Adequate Sodium 134 L Potassium 5.1 Chloride 110 H Carbon Dioxide 16 L Anion Gap 13 BUN 46 H Creatinine 3.45 H Estimated GFR (MDRD) 13 Glucose 59 L* POC Glucose 194 H Calcium 8.0 Surgery Progress Note: A/P - Problem (1) Perforated sigmoid colon Current Visit: Yes Code(s): K63.1 - PERFORATION OF INTESTINE (NONTRAUMATIC) Status: Acute (2) Acute renal failure Current Visit: Yes Status: Acute - Plan Plan: Postop sigmoid colectomy -remove jose today -Full liquids -ambulate
[2018-10-16] MEDS: Famotidine/PF 20 mg/2ml Vial SLOW IVP SCH (19:59)
[2018-10-16] MEDS ORDERED: Acetaminophen 325 MG TAB PO PRN ×2 (23:47)
[2018-10-17 06:10] LABS: Hemoglobin 8.3 g/dL (12.0-16.0); Hypochromia SLIGHT = 6-15 cells (100X) (0-5/hpf); Lymphocytes 5 % (21-51); MDiff Complete? YES; Mean Corpuscular HGB CONC 32.9 g/dL (32.0-36.0); Mean Corpuscular Hemoglobin 29.4 pg (27.0-31.0); Mean Corpuscular Volume 89.3 fL (78.0-98.0); Mean Platelet Volume 6.6 fL (7.4-10.4); Monocytes 2 % (0-10); Neutrophil 93 % (42-75); Nucleated RBC 1 % (0); Platelet Count 248 thou/uL (130-400); Platelet Morphology Comment Appears Adequate; RBC Distribution Width 13.5 % (11.5-14.5); Red Blood Cell (RBC) Count 2.83 mill/uL (4.20-5.40); White Blood Cell (WBC) Count 17.6 thou/uL (4.8-10.8)
--- NOTE | 2018-10-17 08:51 | PDOC.GSPN ---
Surgery Progress Note: Subj - Subjective Patient reports: other (Cough with phlegm), still having pain (Diffuse across abdomen), tolerating liquids well Surgery Progress Note: Obj - Vital signs Vital signs: Vital Signs - Most Recent Temp Pulse Resp BP Pulse Ox 99 F 88 16 137/85 95 10/17/18 07:35 10/17/18 07:35 10/17/18 07:35 10/17/18 07:35 10/17/18 07:35 - Physical Exam General: no distress ENT: normal mucosa, normal nares. negative: no congestion, nasal discharge Cardiovascular: regular rate and rhythm Respiratory: coarse breath sounds Abdomen: soft (Colostomy bag recently changed, small amount of liquid present), appropriately tender Hernia: none Wound: dressing clean,dry,intact, ostomy/colostomy (clean and dry) Surgery Progress Note: Results - Labs Result Diagrams: 10/17/18 05:04 10/16/18 04:51 Lab results: Laboratory Results - last 24 hr 10/17/18 05:04 WBC 17.6 H RBC 2.83 L Hgb 8.3 L Hct 25.3 L MCV 89.3 MCH 29.4 MCHC 32.9 RDW 13.5 Plt Count 248 MPV 6.6 L Neutrophils % (Manual) 93 H Lymphocytes % (Manual) 5 L Monocytes % (Manual) 2 Nucleated RBCs # (Man) 1 H Hypochromia SLIGHT = 6-15 cells Plt Morphology Comment Appears Adequate Surgery Progress Note: A/P - Problem (1) Perforated sigmoid colon Current Visit: Yes Code(s): K63.1 - PERFORATION OF INTESTINE (NONTRAUMATIC) Status: Acute Assessment and Plan: 68 yo F s/p colostomy for sigmoid colon perforation. Patient still having discomfort. Tolerating liquids well. Plan - Pain control - Advance diet as tolerated - Ambulation (2) Acute renal failure Current Visit: Yes Status: Acute Assessment and Plan: Creatinine and UOP continue to improve, will continue to monitor (3) Cough Current Visit: Yes Code(s): R05 - COUGH Status: Acute Assessment and Plan: New onset cough with subjective phlegm production. DDx: HAP vs. URI vs. Atelectasis Plan - Consider CXR - Continue to use IS - will f/u Addendum - Physician - Physician Attestation Date/Time: 10/17/18 1027 I personally performed or re-performed the physical examination and medical decision making. I have verified all student documentation or findings, including history, physical exam and/or medical decision making.
[2018-10-17] MEDS: Fentanyl 100 MCG/2 ML VIAL SLOW IVP PRN ×2 (09:56→16:42)
[2018-10-17] MEDS: MEROPENEM 1 GM/50 ML 1 GM in Premix Bag 1 BAG IVPB SCH (09:57)
[2018-10-17 10:43] LABS: Anion Gap 11 mmol/L (10-20); BUN (Urea Nitrogen) 36 mg/dL (9.8-20.1); Calc. Creatinine Clearance 16 mL/min (70-130); Calcium 8.2 mg/dL (7.8-10.44); Carbon Dioxide 23 mmol/L (23-31); Chloride 107 mmol/L (98-107); Estimated GFR-MDRD 16; Glucose 113 mg/dL (80-115); Potassium 4.3 mmol/L (3.5-5.1); Sodium 137 mmol/L (136-145)
--- NOTE | 2018-10-17 11:10 | PRG ---
DATE OF SERVICE: 10/17/2018 SUBJECTIVE: A 68-year-old female being seen for acute kidney injury. The patient denies any nausea, vomiting, or chest pain. OBJECTIVE: CONSTITUTIONAL: The patient is awake, alert, in no acute distress. VITAL SIGNS: Afebrile, pulse 80, breathing 16, and blood pressure 137/85. GENERAL APPEARANCE AND MENTAL STATUS: Fair. HEAD/NECK: Normocephalic. Atraumatic. EYES: EOMI. No deformity. EARS: Clear. No ulcers. NOSE: Intact. No lesions. MOUTH: Clear. No discharge. THROAT: Clear. No exudate. LUNGS: Clear. No crackles. CARDIAC: S1, S2. No rub. ABDOMEN: Benign. Bowel sounds positive. GENITALIA/RECTUM: Garcia absent. BACK/EXTREMITIES: Edema 0+. NEUROLOGICAL: Alert and motor intact. SKIN: LYMPHATICS: LABORATORY DATA: Labs show . Creatinine is pending. IMPRESSION AND PLAN: 1. Acute kidney injury with chronic kidney disease, stage 5. We will recheck labs. 2. Hypertension, stable. 3. Anemia, stable. 4. Medication based on GFR, appropriate. Job ID: [id number]
--- NOTE | 2018-10-17 11:51 | RAD ---
TWO VIEW CHEST: History: Dyspnea. Post op. FINDINGS: Tiny amount of free air under the right hemidiaphragm indicates post-operative status. Ther e is evidence of small bilateral effusions. Mild vascular engorgement and some interstitial prominenc e may represent mild interstitial congestion. Possibly some linear atelectasis in the right midlung. Heart size is upper normal. Stranding or atelectasis in the left lung base is noted. IMPRESSION: Small effusions and evidence of mild congestion. Free intraperitoneal air consistent with post-operat kira status. POS: H
[2018-10-17] MEDS: Famotidine/PF 20 mg/2ml Vial SLOW IVP SCH (20:27)
[2018-10-17] MEDS: HYDROcodone/Acetaminophen 7.5/325 mg Tablet PO PRN (21:55)
--- NOTE | 2018-10-18 00:51 | CON ---
DATE OF CONSULTATION: PRIMARY CARE PHYSICIAN: Estephania Morales. PRIMARY TEAM: General Surgery, Dr. Raymundo. REASON FOR CONSULTATION: Medical management. HISTORY OF PRESENT ILLNESS: This is a 68-year-old female with no known past medical history, who presented to the emergency room in [place] with a history of few days of lower abdominal pain. She had some upper respiratory tract infection symptoms for the last couple weeks and was seen at an urgent care and given Rocephin and Bactrim for UTI. She presented the next day to [place] [facility] with worsened pain. There, she was noted to be tachycardic, have evidence of urinary tract infection, also with leukocytosis and acute renal failure. Creatinine of 6, potassium 5.1. The patient had a liter of fluid given and was given Rocephin and transferred to our emergency room. In our ER, CT scan was done which showed evidence of perforated viscus in the lower abdomen along with severe hydronephrosis bilaterally, distention of the bladder, and a left ureteral stone that was proximal to the distention. The patient did have a Garcia placed in the emergency room, had 400 mL of urine output there. Dr. Raymundo was notified and admitted to the hospital for a laparotomy with sigmoid colectomy and colostomy. She was found to have ruptured diverticulum as the source of the problem and there was free flow of stool into the abdomen. The patient also was seen by Dr. Swain who monitored her kidneys. He did do a marking ultrasound for a possible fistula placement, but her kidney function has actually improved over the hospitalization going the creatinine of 6 down to a creatinine of 2.88 today. She has had no more hyperkalemia for the last few days as well. The patient was noted on initial presentation to have a very low hemoglobin as well of 6.3 in [place]. She was given transfusions here and her hemoglobin is now 8.3 and stable. On history, she reports that she has been having some prolonged vaginal bleeding, not a lot coming out now, but this has been overall a prolonged period of time. She was unable to say exactly how long. The patient overall has been making a slow improvement. She does have a persistent leukocytosis of 17,000 today and has continued to spike fevers most recently was 101 early this morning, currently afebrile. She did grow out Escherichia coli from her urine culture. This was resistant to ampicillin, cefepime, ceftazidime, ceftriaxone, ciprofloxacin, and trimethoprim/sulfamethoxazole. She is currently on meropenem, which the E coli is sensitive to. PAST MEDICAL HISTORY: No known past medical history. PAST SURGICAL HISTORY: None. ALLERGIES: NO KNOWN DRUG ALLERGIES. CURRENT MEDICATIONS: Her medications prior to admission, none. Current medications on her MAR and reviewed. SOCIAL HISTORY: No tobacco, alcohol, or illicit drug use. She is currently visiting from [place]. Does not speak any Barbadian. FAMILY HISTORY: No known family medical problems. REVIEW OF SYSTEMS: CONSTITUTIONAL: No fevers or chills currently. She did not remember feeling febrile this morning when she had a recorded temperature. EYES: No double vision or blurred vision. ENT: She has some postnasal drip and some dryness on her throat, but no sore throat. CARDIOVASCULAR: No chest pain. No palpitations or racing heart. PULMONARY: She has had some cough with some mucus in the back of her throat, but is not able to cough anything up. No shortness of breath. GASTROINTESTINAL: She has persistent lower abdominal pain. She denies any nausea or vomiting. She has an ostomy in place. No output measurements noted in the chart, but there is notation in the surgical chart that the patient recently had her bag changed, and there was small amount of liquid present at that time. GENITOURINARY: She reports that she had some dysuria initially. She now has a Garcia in place. Does not know about any blood in her urine. She does report the bleeding from her vagina. She was not able to give me a time frame for how long it has been going on for the initial pulmonology consult. She reported at that time that has been going on for at least a year, small amount. No massive hemorrhage from the vagina. MUSCULOSKELETAL: No muscle aches or joint pains. No back pain. SKIN: No rashes or other lesions that she has noted. NEUROLOGIC: No weakness anywhere. PHYSICAL EXAMINATION: VITAL SIGNS: Blood pressure 141/78, pulse 92, respirations 18, O2 saturation 95% on room air, temperature 98.5. GENERAL: This is a well-developed, well-nourished female, in no acute distress. HEENT: Pupils are equal, round, and reactive to light. Oropharynx clear without lesions, erythema, or exudate. NECK: Supple. No lymphadenopathy. No thyroid nodules or enlargement. No JVD. HEART: Regular rate and rhythm. No murmurs, rubs, or gallops. LUNGS: Clear to auscultation bilaterally. No wheezes, crackles, or rhonchi. ABDOMEN: Soft. She has a laparotomy and the ostomy bag in place. Normoactive bowel sounds. EXTREMITIES: No clubbing, cyanosis, or edema. SKIN: No rashes or other skin lesions noted. NEUROLOGIC: She has movement in all extremities. No facial droop. LABORATORY DATA: CBC, currently white blood cell count 17,000 with 93% neutrophils. Of note, the bands have decreased over the last couple of days since antibiotics were switched to meropenem. Hemoglobin 8.3, hematocrit 25.3, platelet count 248. Basic metabolic panel today showed only abnormalities were BUN of 36, down from 57 initially, and a creatinine of 2.88 down from over 6 initially. Initial urinalysis did show greater than 50 to [id number]-count white blood cells with 4+ bacteria. Serology was negative for hepatitis B. Blood cultures are negative x2. ASSESSMENT: 1. Acute perforated diverticulitis, status post laparotomy with sigmoid colectomy and colostomy, doing well after the surgery. 2. Sepsis with persistent elevated white blood cell count and recurrent fevers. The patient has only been on antibiotics for her E coli for the last couple of days, before that she was on Cipro and Bactrim, which is resistant to, so we will need to continue monitoring for improvement on the proper antibiotics. She does not appear to be volume depleted at this time as she has had good urine output and her vital signs are otherwise stable besides the fever. 3. Complicated urinary tract infection with nephrolithiasis and hydronephrosis. The patient is currently on the appropriate antibiotics. Eventually, we will need some input from Urology on how long she will need to be on the antibiotics specifically for the urinary tract infection part of the infection. 4. Bilateral severe hydronephrosis with nephrolithiasis, though no obvious obstruction from that. We will consult Urology for recommendations on how long she need to have the Garcia in and what other interventions need to be done. I am going to go ahead and get a renal ultrasound to assess for persistence of the hydronephrosis after deflation with the Garcia. 5. Dysfunctional vaginal bleeding with severe anemia. The patient is postmenopausal and having bleeding for the last year. She does have, per the surgeon during surgery, he noted a very fibroid uterus with multiple fibroids. The patient is at risk given her age and bleeding and at risk for endometrial cancer. We will consult Gynecology and see if she would benefit from endometrial biopsy here in the hospital. 6. Gastrointestinal prophylaxis. The patient is currently on famotidine daily. 7. Deep venous thrombosis prophylaxis. The patient has sequential compression devices in place. We gave her blood thinners due to her significant anemia when she came in and history of persistent uterine bleeding. Thank you very much for the consultation. We are happy to help with the care of your patient while she is in the hospital. Job ID: [id number]
[2018-10-18] MEDS: MEROPENEM 1 GM/50 ML 1 GM in Premix Bag 1 BAG IVPB SCH (10:12)
[2018-10-18] MEDS: HYDROcodone/Acetaminophen 7.5/325 mg Tablet PO PRN ×2 (10:12→18:50)
[2018-10-18 12:03] LABS: Anion Gap 10 mmol/L (10-20); BUN (Urea Nitrogen) 31 mg/dL (9.8-20.1); Calc. Creatinine Clearance 19 mL/min (70-130); Calcium 8.4 mg/dL (7.8-10.44); Carbon Dioxide 22 mmol/L (23-31); Chloride 106 mmol/L (98-107); Estimated GFR-MDRD 20; Glucose 106 mg/dL (80-115); Potassium 4.2 mmol/L (3.5-5.1); Sodium 134 mmol/L (136-145)
--- NOTE | 2018-10-18 12:30 | PRG ---
DATE OF SERVICE: 10/18/2018 SUBJECTIVE: Ms. Jc has no complaints. She tolerated GI soft diet, although she does not have much of an appetite. OBJECTIVE: VITAL SIGNS: She is afebrile, and her vital signs are stable. ABDOMEN: Soft, nondistended, air in her bag. Her dressings are changed. Her midline incision is healing without evidence of infection. ASSESSMENT: Doing well, status post sigmoid colectomy and colostomy, on meropenem. Now, doing well with resolution of expected postop ileus, on GI soft diet. PLAN: Consult is written for Urology to see her for this left-sided kidney stone as well as gynecologic consult for her chronic vaginal bleeding. She did have a nodular uterus found at time of surgery. I suspect she will be here to early in the week. Dr. Navas is covering for me. Job ID: [id number]
--- NOTE | 2018-10-18 12:38 | PRG ---
DATE OF SERVICE: 10/18/2018 SUBJECTIVE: A 68-year-old female being seen for acute kidney injury. The patient denies any nausea, vomiting, or chest pain. OBJECTIVE: CONSTITUTIONAL: The patient is awake and alert. VITAL SIGNS: Pulse 81, breathing 16, and blood pressure 133/72. GENERAL APPEARANCE AND MENTAL STATUS: Fair. HEAD/NECK: Normocephalic. Atraumatic. EYES: EOMI. No deformity. EARS: Clear. No ulcers. NOSE: Intact. No lesions. MOUTH: Clear. No discharge. THROAT: Clear. No exudate. LUNGS: Clear. No crackles. CARDIAC: S1, S2. No rub. ABDOMEN: Benign. Bowel sounds positive. GENITALIA/RECTUM: Garcia absent. BACK/EXTREMITIES: Edema 0+. NEUROLOGICAL: Alert and motor intact. SKIN: LYMPHATICS: LABORATORY DATA: Labs show hemoglobin of 8.3, creatinine is 2.4. IMPRESSION AND PLAN: 1. Acute kidney injury, improved. 2. Chronic kidney disease, stage 4, stable. 3. Hypertension, stable. 4. Anemia, stable. The patient can be discharged and follow up as an outpatient. Job ID: [id number]
--- NOTE | 2018-10-18 18:07 | PDOC.PN ---
- Subjective Encounter Start Date: 10/18/18 Encounter Start Time: 08:40 Pt seen for followup re: UTI. Denies chest pain or shortness of breath. - Objective MAR Reviewed: Yes Vital Signs & Weight: Vital Signs (12 hours) Temp Pulse Resp BP Pulse Ox 10/18/18 15:13 98.2 F 72 16 122/69 97 10/18/18 12:00 98.4 F 76 16 129/73 96 10/18/18 08:00 96 10/18/18 07:27 98.5 F 81 14 133/72 96 Weight Admit Weight 111 lb 5.335 oz Weight 119 lb 14.903 oz Most Recent Monitor Data Heart Rate from ECG 91 NIBP 125/64 NIBP BP-Mean 84 Respiration from ECG 21 SpO2 98 I&O: 10/17/18 10/18/18 10/19/18 06:59 06:59 06:59 Intake Total 2994 1800 Output Total 2455 2400 Balance 539 -600 Result Diagrams: 10/17/18 05:04 10/18/18 11:19 Additional Labs: labs reviewed by me Phys Exam - Physical Examination Constitutional: NAD HEENT: moist MMs Neck: supple Respiratory: clear to auscultation bilateral Cardiovascular: RRR Gastrointestinal: soft LLQ ostomy Neurological: moves all 4 limbs Psychiatric: normal affect Dx/Plan (1) UTI (urinary tract infection) Status: Acute Comment: continue meropenem (2) KIM (acute kidney injury) Code(s): N17.9 - ACUTE KIDNEY FAILURE, UNSPECIFIED Status: Acute Comment: creatinine improved to 2.45 today (3) Vaginal bleeding Code(s): N93.9 - ABNORMAL UTERINE AND VAGINAL BLEEDING, UNSPECIFIED Status: Acute Comment: gynecology consulted (4) Perforated sigmoid colon Code(s): K63.1 - PERFORATION OF INTESTINE (NONTRAUMATIC) Status: Resolved Comment: s/p surgery - Plan continue antibiotics, PT/OT, out of bed/ambulate, DVT proph w/SCDs * . Review of Systems - Review of Systems Cardiovascular: negative: chest pain, palpitations, orthopnea, paroxysmal nocturnal dyspnea, edema, light headedness Gastrointestinal: negative: Nausea, Vomiting, Abdominal Pain, Diarrhea, Constipation, Melena, Hematochezia - Medications/Allergies Allergies/Adverse Reactions: Allergies Allergy/AdvReac Type Severity Reaction Status Date / Time No Known Allergies Allergy Verified 10/14/18 01:15 Medications: Current Medications Acetaminophen (Tylenol) 650 mg PO Q6H PRN PRN Reason: FEVER > 101 Last Admin: 10/17/18 00:05 Dose: 650 mg Hydrocodone Bitart/Acetaminophen (Franklin 7.5/325) 1 tab PO Q6H PRN PRN Reason: Mild Pain (1-3) Last Admin: 10/18/18 10:12 Dose: 1 tab Albuterol/Ipratropium (Duoneb) 3 ml NEB Q4H PRN PRN Reason: Wheezing Dextrose/Water (Dextrose 50%) 25 gm SLOW IVP PRN PRN PRN Reason: Hypoglycemia Last Admin: 10/16/18 06:35 Dose: 25 gm Famotidine (Pepcid) 20 mg SLOW IVP QPM [facility] Last Admin: 10/17/18 20:27 Dose: 20 mg Fentanyl (Sublimaze) 25 mcg SLOW IVP Q2H PRN PRN Reason: Mild Pain (1-3) Last Admin: 10/16/18 09:00 Dose: 25 mcg Fentanyl (Sublimaze) 50 mcg SLOW IVP Q2H PRN PRN Reason: Moderate to Severe Pain (6-10) Last Admin: 10/17/18 16:42 Dose: 50 mcg Glucagon (Glucagon) 1 mg IM PRN PRN PRN Reason: Hypoglycemia Hydralazine HCl (Apresoline) 10 mg SLOW IVP Q4H PRN PRN Reason: SBP > 170 or DBP > 100 Dextrose/Water (D5w) 1,000 mls @ 0 mls/hr IV .Q0M PRN PRN Reason: Hypoglycemia Meropenem 1 gm/ Device 50 mls @ 50 mls/hr IVPB 1000 [facility] Last Admin: 10/18/18 10:12 Dose: 50 mls Sodium Bicarbonate 150 meq/ (Dextrose/Water) 1,150 mls @ 75 mls/hr IV INF [facility] Last Admin: 10/16/18 13:23 Dose: 1,150 mls Ondansetron HCl (Zofran Odt) 4 mg PO Q6H PRN PRN Reason: Nausea/Vomiting Ondansetron HCl (Zofran) 4 mg IVP Q6H PRN PRN Reason: Nausea Promethazine HCl (Phenergan) 12.5 mg IM Q4H PRN PRN Reason: Nausea Sodium Chloride (Flush - Normal Saline) 10 ml IVF PRN PRN PRN Reason: Saline Flush
--- NOTE | 2018-10-18 19:07 | CON ---
DATE OF CONSULTATION: 10/18/2018 REASON FOR CONSULTATION: 1. Acute renal insufficiency. 2. Bilateral hydronephrosis, bilateral hydroureter, and left ureteral calculus. 3. Right-sided flank pain. HISTORY OF PRESENT ILLNESS: Ms. 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 She is a lifelong nonsmoker. She reports no previous genitourinary disorder and specifically denies kidney stones. Ms. Jc was admitted on this admission with apparent perforated viscus and has undergone surgery by Dr. Izaiah Raymundo with a colostomy now on the left lower quadrant. The patient reports that she feels somewhat better than on admission, but continues to have bilateral flank pain, which is interestingly more bothersome in the right flank than the left. She reports her flank pain symptoms are more bothersome than her incision from her surgery. The patient and I discussed her CT scan findings showing bilateral hydronephrosis, hydroureter, and a left ureteral calculus. We discussed placing the stent on each side and potentially treating her left-sided calculus with laser lithotripsy. In addition, we discussed the patient has a degree of outlet obstruction, which probably contributes to her continuous urinary incontinence. The patient may need to undergo urethral dilation and due to her postmenopausal status may need to be started on estrogens. PAST MEDICAL HISTORY: The patient has had no mention of significant medical care in the past. PAST SURGICAL HISTORY: Other than what has been done in hospital, there is no prior history of surgery. MEDICATIONS: The patient reports taking NSAIDs at home for pain, but does not report taking them on a very regular basis. ALLERGIES: NO KNOWN DRUG ALLERGIES. SOCIAL HISTORY: The patient specifically denies any cigarette smoking or alcohol use. REVIEW OF SYSTEMS: HEAD, EYES, EARS, NOSE, AND THROAT: Negative. PULMONARY: Negative. CARDIAC: Negative. GASTROINTESTINAL: With recent diverticulitis with perforation. GENITOURINARY: No previous history of kidney stones. No gross hematuria. No oral or smoked tobacco abuse. MUSCULOSKELETAL: Negative. GYNECOLOGIC: The patient is postmenopausal, not using any estrogens. NEUROLOGIC: No focal complaints. PHYSICAL EXAMINATION: VITAL SIGNS: Temperature 98.2, pulse 72, respirations 16, O2 saturation on room air is 97%, blood pressure is 122/69. GENERAL: This is an awake, alert, [place]-speaking only, female, in no apparent distress. She self reports that she does not know how to read or write, and this is her major worry when we discuss the consent. The patient gives a reasonable history of feeling progressively worsened and acutely presenting with lower abdominal pain associated with bilateral flank pain. She does report a longstanding history of urinary incontinence, which is more or less continuous in nature. This points to possible urethral stricture. HEAD, EYES, EARS, NOSE, AND THROAT: Extraocular movements are intact. Sclerae are slightly icteric, as is her skin cast, which yellow in nature. LUNGS: Clear to auscultation bilaterally. CARDIAC: Regular rate and rhythm without murmur, rub, or gallop. ABDOMEN: Soft and nontender except in the lower midline, where incisional scar is present. There is a left lower quadrant colostomy, which has air in the bag and a viable stoma. BACK: There is tenderness greater on the right than tenderness at the patient's midline incision. There is much lesser flank discomfort on the left side, although some is present. EXTREMITIES: Appear within normal limits. NEUROLOGIC: Cranial nerves 3 through 11 appear to be grossly intact. Gait was not assessed due to the patient's postoperative condition. She appears to be able to move all four extremities against gravity. LABORATORY STUDIES: The patient's white count currently at 17,600 with a hemoglobin of 8.3, hematocrit of 25.3. The patient's left shift has increased since surgery, currently at 93 neutrophils. Serum chemistry showed the patient at admission had a high blood urea nitrogen of 57, which has improved during hospitalization, currently down to 31. The patient's creatinine started at 5.74, but has improved to 2.45 with a Garcia catheter in place. ASSESSMENT: 1. Left ureteral calculus. The patient paradoxically has right greater than left pain symptoms. There is a significant calculus density in the patient's left ureter. Below this, ureter is of a different caliber. The caliber of the ureter on both sides somewhat diminishes at this level suggesting a possible retroperitoneal process. Contrast dye was not utilized in the patient's CT scan, and this limits evaluation of the ureters proper. Retrograde pyelography may be beneficial in this patient. 2. Retained urine and overflow incontinence. The patient likely has urethral stricture disease. This would be usually caused by postmenopausal status, which may be remedied with application of topical Estrace or topical Premarin to the urethra and surrounding vaginal tissue. TIME SPENT: Over 80 minutes of initial consultation and assessment time was spent in evaluation of this patient today and in discussion via construction administrator and with nursing staff to the patient to communicate the plans for surgery tomorrow. Job ID: [id number]
[2018-10-18] MEDS ORDERED: CEFAZOLIN 2 GM in Premix Bag 1 BAG IVPB SCH (20:15)
[2018-10-18] MEDS: Famotidine/PF 20 mg/2ml Vial SLOW IVP SCH (21:45)
--- NOTE | 2018-10-18 23:38 | CON ---
DATE OF CONSULTATION: 10/18/2018 CHIEF COMPLAINT: Vaginal bleeding. HISTORY OF PRESENT ILLNESS: The patient is a 68-year-old female, who was transferred to [facility] on 10/13/2018 with concerns for perforated viscus and subsequently went to the surgery for a sigmoidectomy and colostomy. For complete details, please refer to the operative note. We have been asked to participate in the care of Ms. Jc for a three year h/o post menopausal bleeding. She reports prior to the onset of symptoms she had been amenorrheic for many years. She has bleeding has been daily and light. We discussed our concerns and risk for a malignancy given her age and the persistence of her bleeding and the desire to evaluate more for this. Initially, we ordered an ultrasound for evaluation of the endometrial lining with plans to recommend no further intervention should the endometrial lining be less than 4 mm; however, the ultrasound was without sufficient details to be able to give this information. After discussing these findings with the patient, we gave her the option of an exam with biopsy during this hospitalization or to do it once she has recovered more completely from her major surgery in an outpatient setting. The patient felt comfortable with performing that today. The patient was taken to the [facility] exam room, where she was placed in dorsal lithotomy position in stirrups with placement of a speculum. Very quickly, the bleeding was visible and in an effort to identify her cervix, a hard fungating mass was visualized at the path of her vagina. Attempts were made to use the endometrial pipette to obtain biopsy bit of this mass, which did cause more bleeding than when we actually started the exam. We did do two passes and did obtain blood clot, but also what appeared to be pieces of white tissue. Once this was completed, we used 2 x 2s on the end of the single-tooth tenaculum for pressure to assist with the bleeding. On bimanual exam, the patient was noted to have a hard fungating mass that was felt to extend into the parametrium or paravaginal area. These findings are undoubtedly the cause for her hydronephrosis. Once the procedure was completed, we did communicate with the patient our concerns and likely diagnosis of malignancy and with her permission, we also shared that information with friends that were waiting for her in the room. The biopsies were sent to Pathology. The patient does need evaluation with Gynecology-Oncology for further evaluation. Should the patient not be stable for discharge home, a direct transfer would be appropriate. We have submitted a consult for Case Management in an effort to start the process of applying for [place] cervical cancer or uterine cancer medicaid. The patient tolerated the procedure well and was taken back to her room in stable condition. Vital signs this evening; blood pressure is 155/74, temperature 99, pulse of 85, respiratory rate 15, and saturating 97% on room air. In reviewing the records with this hospitalization, I do see that she has already had a CT of the abdomen and pelvis but saw that it was done without contrast. It might be appropriate further imaging to evaluate the extent of this malignancy be done under the direction of her oncologist. . Job ID: [id number] MTDD
[2018-10-19] MEDS: Fentanyl 100 MCG/2 ML VIAL SLOW IVP PRN (06:27)
[2018-10-19] MEDS ORDERED: Iothalamate Meglumine 60% 50 ML VIAL FS ONE (07:38)
[2018-10-19] MEDS ORDERED: Fentanyl 100 MCG/2 ML VIAL ONE (08:07)
[2018-10-19] MEDS ORDERED: Glycopyrrolate 0.2 MG/ML 5 ML SYRINGE ONE (08:55)
[2018-10-19] MEDS ORDERED: Ondansetron PF 4 MG/2 ML Vial ONE (08:55)
[2018-10-19] MEDS ORDERED: Dexamethasone 20 MG/5 ML VIAL ONE (08:55)
[2018-10-19] MEDS ORDERED: Rocuronium Bromide 10 MG/ML (10ML VIAL) ONE (08:55)
[2018-10-19] MEDS ORDERED: PROPOFOL 200 MG/20 ML VIAL ONE (08:55)
[2018-10-19] MEDS ORDERED: Lidocaine 1% PF 5 ML VIAL ONE (08:55)
[2018-10-19] MEDS ORDERED: B & O ONE (09:57)
--- NOTE | 2018-10-19 10:05 | RAD ---
RETROGRADE PYELOGRAM: Date: 10/19/18 HISTORY: Stent placement. FINDINGS: A series of 10 images show bilateral stent placement. Stents appear to be in good position. IMPRESSION: Placement of bilateral stents. POS: LALITHA
[2018-10-19] MEDS ORDERED: SUGAMMADEX SODIUM 200 MG/2 ML VIAL ONE (10:12)
[2018-10-19] MEDS ORDERED: Ondansetron HCl/PF 4 MG/2 ML Vial IVP PRN (10:49)
[2018-10-19] MEDS ORDERED: Promethazine HCl 25 MG/ML VIAL IM PRN (10:49)
[2018-10-19] MEDS ORDERED: Promethazine HCl 25 MG/ML VIAL SLOW IVP PRN (10:49)
[2018-10-19] MEDS: MEROPENEM 1 GM/50 ML 1 GM in Premix Bag 1 BAG IVPB SCH (11:27)
[2018-10-19 11:46] LABS: Anion Gap 11 mmol/L (10-20); BUN (Urea Nitrogen) 28 mg/dL (9.8-20.1); Calc. Creatinine Clearance 20 mL/min (70-130); Calcium 8.4 mg/dL (7.8-10.44); Carbon Dioxide 22 mmol/L (23-31); Chloride 106 mmol/L (98-107); Estimated GFR-MDRD 21; Glucose 90 mg/dL (80-115); Potassium 4.5 mmol/L (3.5-5.1); Sodium 134 mmol/L (136-145)
--- NOTE | 2018-10-19 12:07 | PRG ---
DATE OF SERVICE: 10/19/2018 SUBJECTIVE: A 68-year-old female, being seen for acute kidney injury. The patient denies any nausea, vomiting, or chest pain. OBJECTIVE: CONSTITUTIONAL: The patient is awake, alert, in no acute distress. VITAL SIGNS: Afebrile, pulse 79, breathing 16, blood pressure 115/68. GENERAL APPEARANCE AND MENTAL STATUS: Fair. HEAD/NECK: Normocephalic. Atraumatic. EYES: EOMI. No deformity. EARS: Clear. No ulcers. NOSE: Intact. No lesions. MOUTH: Clear. No discharge. THROAT: Clear. No exudate. LUNGS: Clear. No crackles. CARDIAC: S1, S2. No rub. ABDOMEN: Benign. Bowel sounds positive. GENITALIA/RECTUM: Garcia absent. BACK/EXTREMITIES: Edema 0+. NEUROLOGICAL: Alert and motor intact. SKIN: LYMPHATICS: LABORATORY DATA: Labs are reviewed. Today's labs are pending. ASSESSMENT AND PLAN: 1. Chronic kidney disease stage 4, stable. 2. Acute kidney injury, improving. 3. Hypertension, stable. 4. We will check labs today. Job ID: [id number]
--- NOTE | 2018-10-19 14:19 | CON ---
DATE OF CONSULTATION: 10/19/2018 CONSULTATION/PROGRESS NOTE CHIEF COMPLAINT: 1. Right-sided flank pain. 2. Left-sided ureteral calculus. 3. Bilateral hydronephrosis. 4. Pelvic abscess and/or retroperitoneal mass with obliteration of ureter lumen bilaterally suggestive of a retroperitoneal malignancy. 5. Cervical mass. 6. Renal failure. BRIEF HISTORY: Ms. Svetlana Jc is a pleasant 68-year-old Dutch-speaking only, female, who presented in renal failure on 10/13/2018 with complaints of bilateral abdominal pain, most noticeable on the right side. She had lower abdominal discomfort, underwent CT scan, which demonstrated perforation of her colon. The patient underwent an emergent colostomy and sigmoid resection. She had notable palpable indurated and fixed uterus at the time of the operation. The patient has in the interim been moderately improving on the floor, but has not had complete recovery of renal function. INTERVAL EVENTS: The patient underwent evaluation by the hospital and drying supervisor cooking casing, Dr. Adrian Flowers, who believes that she has some type of cervical or uterine process. Biopsy of the cervix was performed yesterday. PHYSICAL EXAMINATION: VITAL SIGNS: Temperature 98.5, pulse 79, respirations 16, O2 saturation 95% on room air, blood pressure 115/68. GENERAL: This is an icteric female with no major pain complaints today. She does have some discomfort in the right side and along her incision from her recent colostomy. HEAD, EYES, EARS, NOSE, AND THROAT: Extraocular movements are intact. Sclerae anicteric. Oropharynx is clear. NECK: Supple. LUNGS: Clear to auscultation bilaterally. CARDIAC: Regular rate and rhythm without murmur, rub, or gallop. ABDOMEN: Soft, nontender. There is dressed lower midline surgical incisional scar. The patient has colostomy in left lower quadrant. She is producing gas. Stoma appears viable. GENITOURINARY: Garcia catheter in place. No evidence of gross hematuria. EXTREMITIES: Appear within normal limits. INTERVAL LABORATORY STUDIES: The patient's white count is now 17.6, hemoglobin is 8.3 with hematocrit of 25.3. There is moderate bandemia with 93% bands. Serum chemistries show creatinine of 2.45, blood urea nitrogen of 31. 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 PLAN: Plan will be to proceed with a bilateral stenting. The patient also has a left-sided ureteral calculus, which may undergo laser lithotripsy today. The stone itself is possibly obstructed as it occurs at the junction of the left obstruction, where the caliber decreases in the ureter. Retroperitoneal mass is alternative cause of the calcification as well. Stenting at the very minimal will be performed. Job ID: [id number]
[2018-10-19 15:37] VITALS: BMI 23.4
--- NOTE | 2018-10-19 16:19 | OP ---
DATE OF PROCEDURE: 10/19/2018 PREOPERATIVE DIAGNOSES: 1. Acute renal failure. 2. Bilateral ureteral stricture secondary to extrinsic mass. 3. Possible cervical cancer with uterine cervical and retroperitoneal mass. 4. Left ureteral obstructing calculus. POSTOPERATIVE DIAGNOSES: 1. Acute renal failure. 2. Bilateral ureteral stricture secondary to extrinsic mass. 3. Possible cervical cancer with uterine cervical and retroperitoneal mass. 4. No clear evidence of left ureteral obstructing calculus. 5. Left ureteral stricture. PROCEDURES PERFORMED: 1. Left-sided ureteroscopy with treatment of ureteral stricture, 64848. 2. Bilateral ureteral stents, 37159-50-R. 3. Colposcopy with biopsy of cervix and curettage, [id number]. BRIEF HISTORY AND INDICATION FOR PROCEDURE: Ms. Svetlana Jc is a very pleasant 68-year-old Chinese-speaking female with recent acute onset renal insufficiency. The patient presented to the hospital with a creatinine in excess of 5. She has no significant past medical history. She underwent CT scan, which suggested the presence of a perforation of her colon. She underwent exploration and treatment by Dr. Raymundo and has a lower midline incision and a left lower quadrant colostomy. The patient continued to have elevated serum creatinine and was evaluated and seen by Dr. Preciado and later, I was consulted to assess and evaluate the patient for her bilateral hydronephrosis and hydroureter. Her hydroureter does not extend down to the level of the bladder suggesting a possible extrinsic mass effect of possible retroperitoneal tumor. The patient underwent a recent evaluation by the hospitalist freezer assistant, Dr. Adrian Flowers and is thought to have a cervical process. He did a limited biopsy yesterday. DESCRIPTION OF PROCEDURE: The patient was appropriately identified in the preoperative holding area, and was brought to the operative suite. Informed written consent was verified. The patient was placed in the supine position on a cysto-fluorographic table. General anesthesia was established using endotracheal airway. The patient was then repositioned in the supine lithotomy position and prepped and draped in usual sterile fashion. Cystoscopic evaluation was performed using a 23-Qatari cystoscope sheath introduced using an obturator and a 30-degree optic. The patient had inflammatory changes and bulk mass compressing the trigone bilaterally. Both the left and right ureteric orifices could be identified, but the ureter appeared to be impinged upon as it was not effluxing to any significant degree on either side. We addressed the patient's right side first. We placed a 0.035 angled Glidewire in the ureter and advanced this past some tortuous iliac blood vessels and into the upper collecting system. We passed a 5-Qatari Crawford catheter and aspirated relatively clear fluid, which was sent for culture due to the patient's elevated white count. This urine appeared to be grossly clear. The patient then underwent stenting using a 26 cm x 8-Qatari Polaris loops stent. On the patient's left side where there was concern for a left-sided calcification, performed pyelography, which showed a radiodensity in the area of concern. We performed retrograde pyelography and here could not get dye to a significantly advanced up the patient's ureter due to dense stricture. We were not able to advance a wire. We then performed cystoureteroscopy using a 6-Qatari semirigid ureteroscopy. We advanced a Glidewire in direct-vision ultimately placing this into the patient's left collecting system. The patient's ureter then underwent aspiration again here. Once again, the urine was clear, but contained particulate matter. Due to the particular matter, we sent the urine for cytology in addition to culture. We performed a balloon dilation of the distal ureteral stricture approximately 5-Qatari to 21-Qatari. We then performed ureteroscopy of left ureter. We were not able to find any calculi within the distal ureter. Due to the patient's general condition, we elected not to perform upper tract ureteroscopic evaluation. The patient then underwent stenting using once again a 26 cm x 8-Qatari Polaris loop stent. The patient's bladder was drained at the close of this. We then performed a colposcopy using the scope per vagina until a mass was identified. This had a fungating appearance to it, relatively pale in color, but with good vascularization. A biopsy was performed here and electrocautery was utilized to obtain proper hemostasis. The patient then received a belladonna and opioid suppository per rectum. Prior to the colposcopy portions, we also performed urethral dilation using metallic sounds to 36-Qatari. The patient was left without Garcia catheter and closed the procedure. Job ID: [id number]
--- NOTE | 2018-10-19 17:26 | PDOC.PN ---
- Subjective Encounter Start Date: 10/19/18 Encounter Start Time: 17:25 Pt seen for followup re: UTI. Denies chest pain or shortness of breath. - Objective MAR Reviewed: Yes Vital Signs & Weight: Vital Signs (12 hours) Temp Pulse Resp BP Pulse Ox 10/19/18 15:25 98.1 F 85 18 115/71 95 10/19/18 12:00 98.2 F 70 16 116/64 94 L 10/19/18 11:00 93 L Weight Admit Weight 111 lb 5.335 oz Weight 119 lb 14.896 oz Most Recent Monitor Data Heart Rate from ECG 91 NIBP 125/64 NIBP BP-Mean 84 Respiration from ECG 21 SpO2 98 I&O: 10/18/18 10/19/18 10/20/18 06:59 06:59 06:59 Intake Total 1800 680 Output Total 2400 1400 Balance -600 -720 Result Diagrams: 10/17/18 05:04 10/19/18 11:05 Additional Labs: Labs reviewed by me Phys Exam - Physical Examination Constitutional: NAD HEENT: moist MMs Neck: supple Respiratory: clear to auscultation bilateral Cardiovascular: RRR Gastrointestinal: soft ostomy Neurological: moves all 4 limbs Psychiatric: normal affect Dx/Plan (1) UTI (urinary tract infection) Status: Acute Comment: on IV meropenem (2) KIM (acute kidney injury) Code(s): N17.9 - ACUTE KIDNEY FAILURE, UNSPECIFIED Status: Acute Comment: creatinine improved to 2.28 today (3) Vaginal bleeding Code(s): N93.9 - ABNORMAL UTERINE AND VAGINAL BLEEDING, UNSPECIFIED Status: Acute Comment: appreciate gynecology input (4) Ureteral stricture Code(s): N13.5 - CROSSING VESSEL AND STRICTURE OF URETER W/O HYDRONEPHROSIS Status: Acute Comment: s/p eliz ureteral stents (5) Perforated sigmoid colon Code(s): K63.1 - PERFORATION OF INTESTINE (NONTRAUMATIC) Status: Resolved Comment: s/p surgery - Plan * . Review of Systems - Review of Systems Cardiovascular: negative: chest pain, palpitations, orthopnea, paroxysmal nocturnal dyspnea, edema, light headedness Gastrointestinal: negative: Nausea, Vomiting, Abdominal Pain, Diarrhea, Constipation, Melena, Hematochezia - Medications/Allergies Allergies/Adverse Reactions: Allergies Allergy/AdvReac Type Severity Reaction Status Date / Time No Known Allergies Allergy Verified 10/14/18 01:15 Medications: Current Medications Acetaminophen (Tylenol) 650 mg PO Q6H PRN PRN Reason: FEVER > 101 Last Admin: 10/17/18 00:05 Dose: 650 mg Hydrocodone Bitart/Acetaminophen ([place] 7.5/325) 1 tab PO Q6H PRN PRN Reason: Mild Pain (1-3) Last Admin: 10/18/18 18:50 Dose: 1 tab Albuterol/Ipratropium (Duoneb) 3 ml NEB Q4H PRN PRN Reason: Wheezing Dextrose/Water (Dextrose 50%) 25 gm SLOW IVP PRN PRN PRN Reason: Hypoglycemia Last Admin: 10/16/18 06:35 Dose: 25 gm Famotidine (Pepcid) 20 mg SLOW IVP QPM SANDRA Last Admin: 10/18/18 21:45 Dose: 20 mg Fentanyl (Sublimaze) 25 mcg SLOW IVP Q2H PRN PRN Reason: Mild Pain (1-3) Last Admin: 10/19/18 06:27 Dose: 25 mcg Fentanyl (Sublimaze) 50 mcg SLOW IVP Q2H PRN PRN Reason: Moderate to Severe Pain (6-10) Last Admin: 10/17/18 16:42 Dose: 50 mcg Glucagon (Glucagon) 1 mg IM PRN PRN PRN Reason: Hypoglycemia Hydralazine HCl (Apresoline) 10 mg SLOW IVP Q4H PRN PRN Reason: SBP > 170 or DBP > 100 Dextrose/Water (D5w) 1,000 mls @ 0 mls/hr IV .Q0M PRN PRN Reason: Hypoglycemia Meropenem 1 gm/ Device 50 mls @ 50 mls/hr IVPB 1000 SANDRA Last Admin: 10/19/18 11:27 Dose: 50 mls Ondansetron HCl (Zofran Odt) 4 mg PO Q6H PRN PRN Reason: Nausea/Vomiting Ondansetron HCl (Zofran) 4 mg IVP Q6H PRN PRN Reason: Nausea
--- NOTE | 2018-10-19 17:43 | PRG ---
DATE OF SERVICE: 10/19/2018 SUBJECTIVE: Ms. Jc is doing well today. She has no new complaints. Temperature 98.1 degrees, pulse 85, blood pressure 115/71. No new laboratories today except for sodium is 134, stable from yesterday. BUN and creatinine are 28 and 2.28, relatively stable from yesterday, slightly improved. Glucose 90. OBJECTIVE: LUNGS: Clear to auscultation. CARDIAC: Regular rate and rhythm without murmur or gallop. ABDOMEN: Soft, nontender. Colostomy healthy. ASSESSMENT AND PLAN: Overall, the patient is doing well. Her renal function slowly improves. Dr. Dinh Ang, Urology has seen her this morning and left ureteroscopy, treatment of a ureteral stricture performed, bilateral ureteral stents, colposcopy with biopsy of cervix and curettage performed for her renal failure, bilateral ureteral stricture secondary to extrinsic mass, thought possibly be cervical cancer with uterine cervical and retroperitoneal mass, and left ureteral stricture. Dr. Flowers saw the patient yesterday from Gynecology, and because of her vaginal bleeding, postmenopausal, there was concern for malignancy, the patient underwent biopsy by Dr. Flowers along with the urological procedure. Pathology is pending. It was felt that she may need a repeat CAT scan with contrast, although with her renal failure, this is not possible at this time. Job ID: [id number]
[2018-10-19] MEDS: HYDROcodone/Acetaminophen 7.5/325 mg Tablet PO PRN (21:12)
[2018-10-19] MEDS: Famotidine/PF 20 mg/2ml Vial SLOW IVP SCH (21:12)
[2018-10-20] MEDS: HYDROcodone/Acetaminophen 7.5/325 mg Tablet PO PRN (03:05)
[2018-10-20] MEDS: Fentanyl 100 MCG/2 ML VIAL SLOW IVP PRN (03:55)
--- NOTE | 2018-10-20 07:50 | PDOC.EVN ---
Event Note - Event Note Event Note: OBGYN Appeals Representative Facuty: Aware of intraoperative cervical mass biopsies performed during ureteral stent placement. Path pending Suspect cervical CA I will check this out/hand-off to the oncoming MDs
[2018-10-20] MEDS: MEROPENEM 1 GM/50 ML 1 GM in Premix Bag 1 BAG IVPB SCH (09:38)
[2018-10-20 11:10] LABS: Anion Gap 13 mmol/L (10-20); BUN (Urea Nitrogen) 39 mg/dL (9.8-20.1); Calc. Creatinine Clearance 18 mL/min (70-130); Calcium 8.6 mg/dL (7.8-10.44); Carbon Dioxide 19 mmol/L (23-31); Chloride 106 mmol/L (98-107); Estimated GFR-MDRD 19; Glucose 212 mg/dL (80-115); Potassium 4.9 mmol/L (3.5-5.1); Sodium 133 mmol/L (136-145)
--- NOTE | 2018-10-20 11:12 | PRG ---
DATE OF SERVICE: 10/20/2018 SUBJECTIVE: A 68-year-old female being seen for acute kidney injury. The patient denies any nausea, vomiting, or chest pain. OBJECTIVE: GENERAL: The patient is awake and alert. VITAL SIGNS: Afebrile, pulse 87, breathing 16, and blood pressure 112/77. GENERAL APPEARANCE AND MENTAL STATUS: Fair. HEAD/NECK: Normocephalic. Atraumatic. EYES: EOMI. No deformity. EARS: Clear. No ulcers. NOSE: Intact. No lesions. MOUTH: Clear. No discharge. THROAT: Clear. No exudate. LUNGS: Clear. No crackles. CARDIAC: S1, S2. No rub. ABDOMEN: Benign. Bowel sounds positive. GENITALIA/RECTUM: Garcia absent. BACK/EXTREMITIES: Edema 0+. NEUROLOGICAL: Alert and motor intact. SKIN: LABORATORY DATA: Labs showed hemoglobin 8.3. Creatinine is 2.2 yesterday, today is pending. ASSESSMENT AND PLAN: 1. Acute kidney injury, improving. 2. Chronic kidney disease, stage 4, stable. 3. Hypertension, stable. 4. Anemia stable. I will sign off on this patient. Please reconsult as needed. Job ID: [id number]
[2018-10-20] MEDS ORDERED: Acetaminophen 500 MG TAB PO PRN (12:59)
--- NOTE | 2018-10-20 13:15 | PDOC.PN ---
- Subjective Encounter Start Date: 10/20/18 Encounter Start Time: 08:40 Pt seen for followup re: UTI. No complaints today. - Objective Vital Signs & Weight: Vital Signs (12 hours) Temp Pulse Resp BP Pulse Ox 10/20/18 11:44 97.5 F L 63 18 115/68 97 10/20/18 08:00 97 10/20/18 07:22 97.6 F 67 18 108/63 97 10/20/18 04:46 97.9 F 61 16 112/77 96 Weight Admit Weight 111 lb 5.335 oz Weight 119 lb 14.896 oz Most Recent Monitor Data Heart Rate from ECG 91 NIBP 125/64 NIBP BP-Mean 84 Respiration from ECG 21 SpO2 98 I&O: 10/19/18 10/20/18 10/21/18 06:59 06:59 06:59 Intake Total 680 850 460 Output Total 1400 Balance -720 850 460 Result Diagrams: 10/17/18 05:04 10/20/18 10:29 Phys Exam - Physical Examination Constitutional: NAD HEENT: moist MMs Neck: supple Respiratory: clear to auscultation bilateral Cardiovascular: no rub Gastrointestinal: non-tender ostomy Neurological: moves all 4 limbs Psychiatric: normal affect Dx/Plan (1) UTI (urinary tract infection) Status: Acute Comment: Improving, continue IV meropenem (2) KIM (acute kidney injury) Code(s): N17.9 - ACUTE KIDNEY FAILURE, UNSPECIFIED Status: Acute Comment: creatinine 2.49 today (3) Vaginal bleeding Code(s): N93.9 - ABNORMAL UTERINE AND VAGINAL BLEEDING, UNSPECIFIED Status: Acute Comment: likely malignancy (4) Ureteral stricture Code(s): N13.5 - CROSSING VESSEL AND STRICTURE OF URETER W/O HYDRONEPHROSIS Status: Acute Comment: s/p eliz ureteral stents (5) Perforated sigmoid colon Code(s): K63.1 - PERFORATION OF INTESTINE (NONTRAUMATIC) Status: Resolved - Plan * . Review of Systems - Review of Systems Respiratory: negative: Cough, Shortness of Breath, SOB with Excertion, Pleuritic Pain, Wheezing Cardiovascular: negative: chest pain, palpitations, orthopnea, paroxysmal nocturnal dyspnea, edema, light headedness - Medications/Allergies Allergies/Adverse Reactions: Allergies Allergy/AdvReac Type Severity Reaction Status Date / Time No Known Allergies Allergy Verified 10/14/18 01:15 Medications: Current Medications Acetaminophen (Tylenol) 650 mg PO Q6H PRN PRN Reason: FEVER > 101 Last Admin: 10/17/18 00:05 Dose: 650 mg Acetaminophen (Tylenol) 1,000 mg PO Q6H PRN PRN Reason: Mild Pain (1-3) Albuterol/Ipratropium (Duoneb) 3 ml NEB Q4H PRN PRN Reason: Wheezing Dextrose/Water (Dextrose 50%) 25 gm SLOW IVP PRN PRN PRN Reason: Hypoglycemia Last Admin: 10/16/18 06:35 Dose: 25 gm Fentanyl (Sublimaze) 25 mcg SLOW IVP Q2H PRN PRN Reason: Mild Pain (1-3) Last Admin: 10/20/18 03:55 Dose: 25 mcg Fentanyl (Sublimaze) 50 mcg SLOW IVP Q2H PRN PRN Reason: Moderate to Severe Pain (6-10) Last Admin: 10/17/18 16:42 Dose: 50 mcg Glucagon (Glucagon) 1 mg IM PRN PRN PRN Reason: Hypoglycemia Hydralazine HCl (Apresoline) 10 mg SLOW IVP Q4H PRN PRN Reason: SBP > 170 or DBP > 100 Dextrose/Water (D5w) 1,000 mls @ 0 mls/hr IV .Q0M PRN PRN Reason: Hypoglycemia Meropenem 1 gm/ Device 50 mls @ 50 mls/hr IVPB 1000 SANDRA Last Admin: 10/20/18 09:38 Dose: 50 mls Ondansetron HCl (Zofran Odt) 4 mg PO Q6H PRN PRN Reason: Nausea/Vomiting Ondansetron HCl (Zofran) 4 mg IVP Q6H PRN PRN Reason: Nausea Tramadol HCl (Ultram) 50 mg PO Q6H PRN PRN Reason: Moderate Pain (4-6)
--- NOTE | 2018-10-20 13:33 | PRG ---
DATE OF SERVICE: 10/20/2018 SUBJECTIVE: Svetlana Jc is doing well today. She is tolerating her diet. OBJECTIVE: VITAL SIGNS: Temperature 97.5 degrees, pulse rate 63, blood pressure 115/68. LUNGS: Clear to auscultation. CARDIAC: Regular rate and rhythm without murmur or gallop. ABDOMEN: Soft, nontender. Colostomy healthy. Gas and stool present. LABORATORY DATA: CBC was not obtained today. Her sodium is 133, BUN 39, creatinine 2.49, slightly worse than yesterday. GFR 212. ASSESSMENT AND PLAN: The patient is doing well postoperatively. She is tolerating her diet. She is on oral analgesics. Hopefully, she can be discharged home in the next few days. Urology and Gynecology are seeing her. Pathology intraoperative biopsy yesterday pending. Job ID: [id number]
[2018-10-20] MEDS: traMADol HCl 50 MG TAB PO PRN (17:20)
--- NOTE | 2018-10-20 19:45 | CON ---
DATE OF CONSULTATION: 10/20/2018 REASON FOR CONSULTATION: 1. Acute renal insufficiency. 2. Bilateral hydronephrosis with bilateral hydroureter terminating in mid ureter and left ureteral calculus as well as right-sided flank pain. BRIEF HISTORY: Ms. 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 The patient on this admission has had acute renal insufficiency, likely secondary to outlet obstruction and we believe this outlet obstruction do occur between the kidneys and the bladder. The patient has bilateral hydronephrosis, which terminates in mid ureter. This is present on both left and right side. On left side, there was also evidence of possible calcification observed on an admission CT scan. Yesterday, the patient underwent cystoscopic evaluation, bilateral ureteral stent placement, balloon dilation of the left ureter and ureteroscopic evaluation on the left side. We were not able to see any distal calculi in this patient. The patient is doing well with bilateral stents in place and actually appears better on exam today. A biopsy under anesthesia was performed of the cervix due to possible limited biopsy obtained by Dr. Flowers after our discussion. I did go ahead and proceed with a more formal biopsy of her cervical mass, which was sent for permanent section and is still pending. Today, Ms. Jc has no major complaints. I discussed with her via the tele center specialists her current situation with both ureters obstructed by what appears to be a retroperitoneal mass. Given the presence of a cervical mass, potential of a cervical cancer was discussed with the patient today. I discussed with her that the management treatment of this would probably be directed on Oncology Service or Mental Health Aide-Oncology service. Arrangements for that are already underway by Dr. Flowers. PHYSICAL EXAMINATION: VITAL SIGNS: Temperature is 97.5, pulse 62, respirations 18, O2 saturation on room air is 96%, and blood pressure is 115/64. GENERAL: Ms. Jc was up sitting in a chair today, which is satisfactory and apparently feeling better than she did on previous days. Her color is much better today. HEAD, EYES, EARS, NOSE, AND THROAT: Extraocular movements are intact. Sclerae anicteric. Oropharynx is clear. NECK: Supple. LUNGS: Clear to auscultation bilaterally. CARDIAC: Regular rate and rhythm. ABDOMEN: Soft and nontender. PELVIC: Not performed due to limited availability of nursing staff. The patient self reports minimal vaginal blood discharge. She reports that she is voiding well and not having difficulties. Intake and Output: The patient is voiding in the toilet at the present time and had 3 voids today and 3 voids yesterday. She does not report significant blood or clots in her urine. LABORATORY DATA: Microbiology, the patient's urine culture from 10/13/2018, returned with E. coli present in it. She is currently on meropenem, which should cover this organism. Serum chemistry show the patient's current creatinine at 2.49, blood urea nitrogen at 39, potassium is 4.9. The hematologic profile shows her last CBC with white cell count of 17,600 prior to our procedure, hemoglobin of 8.3, and hematocrit of 25.3. ASSESSMENT: 1. Bilateral ureteral obstruction. The patient will be managed with long-term indwelling stents. I would recommend avoiding catheterization in this unless absolutely necessary to avoid contamination of the stents. The patient is properly covered at the present time on meropenem. 2. ID. The patient's urine culture from 10/13/2018, grew E. coli which had extended resistance to penicillins and some cephalosporins as well as ciprofloxacin. As an outpatient, the patient potentially could be managed on fosfomycin or IV meropenem. The patient is to need a PICC line. The patient would probably need an ID consult. 3. Renal insufficiency. The patient is currently followed by Dr. Dimitry Swain at the present time. There has been significant improvement in the renal function parameters, but I would expect him to continue to improve with bilateral stenting. 4. History of sigmoid diverticulitis, status post colostomy. The patient at the present time is doing well with her colostomy and does not have any major complaints. There is no significant incisional discomfort today. Over 35 minutes, consultation and assessment time was spent in evaluation of this patient today. Job ID: [id number]
[2018-10-21] MEDS: Fentanyl 100 MCG/2 ML VIAL SLOW IVP PRN ×2 (04:11→08:49)
--- NOTE | 2018-10-21 10:13 | EKG ---
Test Reason : PRE OP Blood Pressure : / mmHG Vent. Rate : 108 BPM Atrial Rate : 108 BPM P-R Int : 122 ms QRS Dur : 070 ms QT Int : 300 ms P-R-T Axes : 071 049 054 degrees QTc Int : 402 ms Sinus tachycardia Otherwise normal ECG No previous ECGs available Confirmed by TONE TORRES (2) on 10/21/2018 10:12:57 AM Referred By: GOGO JAIME Confirmed By:TONE TORRES
[2018-10-21] MEDS: MEROPENEM 1 GM/50 ML 1 GM in Premix Bag 1 BAG IVPB SCH (10:15)
--- NOTE | 2018-10-21 10:43 | ULT ---
EXAM: PELVIC ULTRASOUND: HISTORY: bleeding. COMPARISON: None. TECHNIQUE: Transabdominal and endovaginal imaging of the pelvis is performed. FINDINGS: Markedly suboptimal evaluation of the uterus and endometrial structures. Neither ovary is appreciated . No obvious fluid in the left or right adnexa. IMPRESSION: Marked suboptimal evaluation. POS: [facility]
[2018-10-21] MEDS: traMADol HCl 50 MG TAB PO PRN (11:37)
--- NOTE | 2018-10-21 13:25 | PDOC.GSPN ---
Surgery Progress Note: Subj - Subjective Patient reports: no new complaints Surgery Progress Note: Obj - Vital signs Vital signs: Vital Signs - Most Recent Temp Pulse Resp BP Pulse Ox 98 F 72 13 117/64 99 10/21/18 08:00 10/21/18 08:00 10/21/18 08:00 10/21/18 08:00 10/21/18 08:00 - Physical Exam General: no distress Cardiovascular: regular rate and rhythm Respiratory: clear to auscultation Abdomen: soft, appropriately tender Wound: healing well Surgery Progress Note: Results - Labs Result Diagrams: 10/17/18 05:04 10/20/18 10:29 Surgery Progress Note: A/P - Problem (1) Perforated sigmoid colon Current Visit: Yes Code(s): K63.1 - PERFORATION OF INTESTINE (NONTRAUMATIC) Status: Resolved (2) Acute renal failure Current Visit: Yes Status: Acute (3) Cough Current Visit: Yes Code(s): R05 - COUGH Status: Acute (4) Cervical mass Current Visit: Yes Code(s): N88.8 - OTHER SPECIFIED NONINFLAMMATORY DISORDERS OF CERVIX UTERI Status: Acute Assessment and Plan: Doing well from colectomy standpoint -await biopsies from cervix -appreciate Dr Ang assistance, stent placement -home when disposition in place for likely cervical cancer
--- NOTE | 2018-10-21 15:54 | PDOC.PN ---
- Subjective Encounter Start Date: 10/21/18 Encounter Start Time: 10:00 Pt seen for followup re: UTI. No complaints - Objective MAR Reviewed: Yes Vital Signs & Weight: Vital Signs (12 hours) Temp Pulse Resp BP Pulse Ox 10/21/18 15:44 98.4 F 74 18 134/78 98 10/21/18 08:00 98 F 72 13 117/64 99 10/21/18 04:00 98.3 F 83 20 96/53 L 96 Weight Admit Weight 111 lb 5.335 oz Weight 119 lb 14.896 oz Most Recent Monitor Data Heart Rate from ECG 91 NIBP 125/64 NIBP BP-Mean 84 Respiration from ECG 21 SpO2 98 I&O: 10/20/18 10/21/18 10/22/18 06:59 06:59 06:59 Intake Total 850 1460 Balance 850 1460 Result Diagrams: 10/17/18 05:04 10/20/18 10:29 Additional Labs: Labs reviewed by me Phys Exam - Physical Examination Constitutional: NAD HEENT: moist MMs Neck: supple Respiratory: clear to auscultation bilateral Cardiovascular: RRR ostomy Neurological: moves all 4 limbs Psychiatric: normal affect Dx/Plan (1) UTI (urinary tract infection) Status: Acute Comment: Improving, on IV meropenem (2) KIM (acute kidney injury) Code(s): N17.9 - ACUTE KIDNEY FAILURE, UNSPECIFIED Status: Acute Comment: stabilizing (3) Vaginal bleeding Code(s): N93.9 - ABNORMAL UTERINE AND VAGINAL BLEEDING, UNSPECIFIED Status: Acute Comment: likely malignancy, await path report (4) Ureteral stricture Code(s): N13.5 - CROSSING VESSEL AND STRICTURE OF URETER W/O HYDRONEPHROSIS Status: Acute Comment: s/p eliz ureteral stents (5) Perforated sigmoid colon Code(s): K63.1 - PERFORATION OF INTESTINE (NONTRAUMATIC) Status: Resolved - Plan * . Review of Systems - Review of Systems Cardiovascular: negative: chest pain, palpitations, orthopnea, paroxysmal nocturnal dyspnea, edema, light headedness Gastrointestinal: negative: Nausea, Vomiting, Abdominal Pain, Diarrhea, Constipation, Melena, Hematochezia - Medications/Allergies Allergies/Adverse Reactions: Allergies Allergy/AdvReac Type Severity Reaction Status Date / Time No Known Allergies Allergy Verified 10/14/18 01:15 Medications: Current Medications Acetaminophen (Tylenol) 650 mg PO Q6H PRN PRN Reason: FEVER > 101 Last Admin: 10/17/18 00:05 Dose: 650 mg Acetaminophen (Tylenol) 1,000 mg PO Q6H PRN PRN Reason: Mild Pain (1-3) Last Admin: 10/21/18 11:38 Dose: 1,000 mg Hydrocodone Bitart/Acetaminophen ([place] 7.5/325) 1 tab PO Q6H PRN PRN Reason: Mild Pain (1-3) Albuterol/Ipratropium (Duoneb) 3 ml NEB Q4H PRN PRN Reason: Wheezing Dextrose/Water (Dextrose 50%) 25 gm SLOW IVP PRN PRN PRN Reason: Hypoglycemia Last Admin: 10/16/18 06:35 Dose: 25 gm Fentanyl (Sublimaze) 25 mcg SLOW IVP Q2H PRN PRN Reason: Mild Pain (1-3) Last Admin: 10/20/18 03:55 Dose: 25 mcg Fentanyl (Sublimaze) 50 mcg SLOW IVP Q2H PRN PRN Reason: Moderate to Severe Pain (6-10) Last Admin: 10/21/18 08:49 Dose: 50 mcg Glucagon (Glucagon) 1 mg IM PRN PRN PRN Reason: Hypoglycemia Hydralazine HCl (Apresoline) 10 mg SLOW IVP Q4H PRN PRN Reason: SBP > 170 or DBP > 100 Dextrose/Water (D5w) 1,000 mls @ 0 mls/hr IV .Q0M PRN PRN Reason: Hypoglycemia Meropenem 1 gm/ Device 50 mls @ 50 mls/hr IVPB 1000 SANDRA Last Admin: 10/21/18 10:15 Dose: 50 mls Ondansetron HCl (Zofran Odt) 4 mg PO Q6H PRN PRN Reason: Nausea/Vomiting Ondansetron HCl (Zofran) 4 mg IVP Q6H PRN PRN Reason: Nausea Tramadol HCl (Ultram) 50 mg PO Q6H PRN PRN Reason: Moderate Pain (4-6) Last Admin: 10/21/18 11:37 Dose: 50 mg
--- NOTE | 2018-10-21 17:22 | PRG ---
DATE OF SERVICE: 10/21/2018 SUBJECTIVE: Patient was seen and examined at bedside and overnight events noted. Patient denies any shortness of breath or chest pain or palpitation. No history of nausea or vomiting or diarrhea or fever or chills or cramps. OBJECTIVE: GENERAL: This is a well-built female, in no apparent distress. VITAL SIGNS: Temperature 98.4, pulse 74, respiratory rate 18, blood pressure 134/78. HEENT: Atraumatic, normocephalic. Oral mucosa is moist NECK: Supple. CARDIOVASCULAR: S1, S2 heard. Rate and rhythm regular. RESPIRATORY: Clear to auscultation. GASTROINTESTINAL: Abdomen is soft. MUSCULOSKELETAL: No tenderness. No edema. DERMATOLOGIC: No skin rash. NEUROLOGIC: Alert and awake and oriented X3. No focal neurologic deficits. Moving all the extremities. PSYCHIATRIC: Mood and affect normal. LABORATORY DATA: Potassium is 4.9, BUN is 39, and creatinine is 2.4. ASSESSMENT AND PLAN: 1. Acute kidney injury on chronic kidney, stage 4, stable. 2. Hypertension. 3. Anemia. 4. Edema, controlled. 5. Hyponatremia. 6. Obstructive uropathy. Follow with Urology. 7. Avoid nephrotoxins. We will follow. Job ID: [id number]
[2018-10-21] MEDS ORDERED: Milk Of Magnesia 30 ML UDCUP PO SCH (18:15)
[2018-10-22] MEDS: HYDROcodone/Acetaminophen 7.5/325 mg Tablet PO PRN ×3 (06:37→20:36)
--- NOTE | 2018-10-22 07:21 | PRG ---
DATE OF SERVICE: 10/22/2018 SUBJECTIVE: Ms. Jc has no complaints. She has no abdominal pain. No fever or chills. She is tolerating a GI soft diet. Her pain is better controlled on the [place] than the tramadol. She is afebrile. Vital signs are stable. Her abdomen is soft. Her wounds are healing well. There is no infection. Her ostomy mucosa is pink. There is stool and air in the bag. ASSESSMENT: 1. Perforated sigmoid colon, status post sigmoid colectomy and colostomy. 2. Cervical mass, await biopsies and further recommendations. 3. Acute on chronic renal failure, improving. PLAN: I dictated a note for the family maybe to get here from [place] to either help her after discharge or take her home. Still awaiting further recommendations on this cervical mass and what the disposition is going to be for that. Likely, I suspect she will be here until the end of the week. Job ID: [id number]
[2018-10-22] MEDS: MEROPENEM 1 GM/50 ML 1 GM in Premix Bag 1 BAG IVPB SCH (10:28)
--- NOTE | 2018-10-22 16:47 | PDOC.PN ---
- Subjective Encounter Start Date: 10/22/18 Encounter Start Time: 08:20 Pt seen for followup re: UTI. No complaints today, eating well. - Objective MAR Reviewed: Yes Vital Signs & Weight: Vital Signs (12 hours) Temp Pulse Resp BP Pulse Ox 10/22/18 16:34 98.6 F 68 12 105/63 97 10/22/18 11:40 98.3 F 85 12 125/75 98 10/22/18 08:00 98.5 F 72 14 122/69 97 Weight Admit Weight 111 lb 5.335 oz Weight 119 lb 14.896 oz Most Recent Monitor Data Heart Rate from ECG 91 NIBP 125/64 NIBP BP-Mean 84 Respiration from ECG 21 SpO2 98 I&O: 10/21/18 10/22/18 10/23/18 06:59 06:59 06:59 Intake Total 1460 825 800 Output Total 5 Balance 1460 820 800 Result Diagrams: 10/17/18 05:04 10/20/18 10:29 Additional Labs: Labs reviewed by me Phys Exam - Physical Examination Constitutional: NAD HEENT: moist MMs Neck: supple Respiratory: clear to auscultation bilateral Cardiovascular: RRR Gastrointestinal: soft ostomy Neurological: moves all 4 limbs Psychiatric: normal affect Dx/Plan (1) UTI (urinary tract infection) Status: Acute Comment: continue IV meropenem (2) KIM (acute kidney injury) Code(s): N17.9 - ACUTE KIDNEY FAILURE, UNSPECIFIED Status: Acute Comment: nephrology following (3) Vaginal bleeding Code(s): N93.9 - ABNORMAL UTERINE AND VAGINAL BLEEDING, UNSPECIFIED Status: Acute Comment: likely malignancy, await path report (4) Ureteral stricture Code(s): N13.5 - CROSSING VESSEL AND STRICTURE OF URETER W/O HYDRONEPHROSIS Status: Acute Comment: s/p eilz ureteral stents by urology service (5) Perforated sigmoid colon Code(s): K63.1 - PERFORATION OF INTESTINE (NONTRAUMATIC) Status: Resolved - Plan * . Review of Systems - Review of Systems Cardiovascular: other. negative: chest pain, palpitations, orthopnea, paroxysmal nocturnal dyspnea, edema, light headedness Gastrointestinal: negative: Nausea, Vomiting, Abdominal Pain, Diarrhea, Constipation, Melena, Hematochezia - Medications/Allergies Allergies/Adverse Reactions: Allergies Allergy/AdvReac Type Severity Reaction Status Date / Time No Known Allergies Allergy Verified 10/14/18 01:15 Medications: Current Medications Acetaminophen (Tylenol) 650 mg PO Q6H PRN PRN Reason: FEVER > 101 Last Admin: 10/17/18 00:05 Dose: 650 mg Acetaminophen (Tylenol) 1,000 mg PO Q6H PRN PRN Reason: Mild Pain (1-3) Last Admin: 10/21/18 11:38 Dose: 1,000 mg Hydrocodone Bitart/Acetaminophen ([place] 7.5/325) 1 tab PO Q6H PRN PRN Reason: Mild Pain (1-3) Last Admin: 10/22/18 13:33 Dose: 1 tab Albuterol/Ipratropium (Duoneb) 3 ml NEB Q4H PRN PRN Reason: Wheezing Dextrose/Water (Dextrose 50%) 25 gm SLOW IVP PRN PRN PRN Reason: Hypoglycemia Last Admin: 10/16/18 06:35 Dose: 25 gm Fentanyl (Sublimaze) 25 mcg SLOW IVP Q2H PRN PRN Reason: Mild Pain (1-3) Last Admin: 10/20/18 03:55 Dose: 25 mcg Fentanyl (Sublimaze) 50 mcg SLOW IVP Q2H PRN PRN Reason: Moderate to Severe Pain (6-10) Last Admin: 10/21/18 08:49 Dose: 50 mcg Glucagon (Glucagon) 1 mg IM PRN PRN PRN Reason: Hypoglycemia Hydralazine HCl (Apresoline) 10 mg SLOW IVP Q4H PRN PRN Reason: SBP > 170 or DBP > 100 Dextrose/Water (D5w) 1,000 mls @ 0 mls/hr IV .Q0M PRN PRN Reason: Hypoglycemia Meropenem 1 gm/ Device 50 mls @ 50 mls/hr IVPB 1000 SANDRA Last Admin: 10/22/18 10:28 Dose: 50 mls Ondansetron HCl (Zofran Odt) 4 mg PO Q6H PRN PRN Reason: Nausea/Vomiting Ondansetron HCl (Zofran) 4 mg IVP Q6H PRN PRN Reason: Nausea Tramadol HCl (Ultram) 50 mg PO Q6H PRN PRN Reason: Moderate Pain (4-6) Last Admin: 10/21/18 11:37 Dose: 50 mg
--- NOTE | 2018-10-22 17:32 | PRG ---
DATE OF SERVICE: 10/22/2018 SUBJECTIVE: Patient was seen and examined at bedside and overnight events noted. Patient denies any shortness of breath or chest pain or palpitation. No history of nausea or vomiting or diarrhea or fever or chills or cramps. OBJECTIVE: GENERAL: This is an elderly female, in no apparent distress. VITAL SIGNS: Temperature 98.6. Pulse 68. Respiratory rate . Blood pressure 105/63. HEENT: Atraumatic, normocephalic. Oral mucosa is moist NECK: Supple. CARDIOVASCULAR: S1, S2 heard. Rate and rhythm regular. RESPIRATORY: Clear to auscultation. GASTROINTESTINAL: Abdomen is soft. MUSCULOSKELETAL: No tenderness. No edema. DERMATOLOGIC: No skin rash. NEUROLOGIC: Alert and awake and oriented X3. No focal neurologic deficits. Moving all the extremities. PSYCHIATRIC: Mood and affect normal. LABORATORY DATA: No labs done today. ASSESSMENT AND PLAN: 1. Acute kidney injury. Recheck labs. 2. Chronic kidney disease, 4. 3. Anemia. 4. Edema. 5. Obstructive uropathy. We will order labs for the morning. Job ID: [id number]
[2018-10-23] MEDS: Fentanyl 100 MCG/2 ML VIAL SLOW IVP PRN (03:12)
[2018-10-23] MEDS: HYDROcodone/Acetaminophen 7.5/325 mg Tablet PO PRN ×3 (06:22→17:56)
[2018-10-23 06:37] LABS: Anion Gap 11 mmol/L (10-20); BUN (Urea Nitrogen) 37 mg/dL (9.8-20.1); Calc. Creatinine Clearance 19 mL/min (70-130); Calcium 8.8 mg/dL (7.8-10.44); Carbon Dioxide 23 mmol/L (23-31); Chloride 106 mmol/L (98-107); Estimated GFR-MDRD 20; Glucose 104 mg/dL (80-115); Potassium 4.8 mmol/L (3.5-5.1); Sodium 135 mmol/L (136-145)
[2018-10-23] MEDS: MEROPENEM 1 GM/50 ML 1 GM in Premix Bag 1 BAG IVPB SCH (10:10)
[2018-10-23] MEDS ORDERED: Epoetin (ESRD) 20,000 UNITS/ML SC SCH (10:45)
--- NOTE | 2018-10-23 11:19 | PRG ---
DATE OF SERVICE: 10/23/2018 SUBJECTIVE: Patient was seen and examined at bedside and overnight events noted. Patient denies any shortness of breath or chest pain or palpitation. No history of nausea or vomiting or diarrhea or fever or chills or cramps. OBJECTIVE: GENERAL: This is a well-built female, in no acute distress. VITAL SIGNS: Temperature 98. Heart rate 80. Respiratory rate 16. Blood pressure 119/66. HEENT: Atraumatic, normocephalic. Oral mucosa is moist NECK: Supple. CARDIOVASCULAR: S1, S2 heard. Rate and rhythm regular. RESPIRATORY: Clear to auscultation. GASTROINTESTINAL: Abdomen is soft. MUSCULOSKELETAL: No tenderness. No edema. DERMATOLOGIC: No skin rash. NEUROLOGIC: Alert and awake and oriented X3. No focal neurologic deficits. Moving all the extremities. PSYCHIATRIC: Mood and affect normal. LABORATORY DATA: Potassium is 4.8. BUN is 37. Creatinine is 2.3. ASSESSMENT AND PLAN: 1. Acute kidney injury on chronic kidney disease, stage 4. Renal function is stable. 2. Obstructive uropathy. Follow with Urology. 3. Anemia, monitor. 4. Edema. We will continue to follow. Job ID: [id number]
[2018-10-23] MEDS ORDERED: Epoetin (ESRD) 10,000 UNITS/ML VIAL SC SCH (12:00)
--- NOTE | 2018-10-23 13:51 | PRG ---
DATE OF SERVICE: 10/23/2018 SUBJECTIVE: Ms. Jc has no complaints. She is tolerating her diet. She is up in the chair today. Her biopsy shows squamous cell cancer of the cervix and the brushings. This was all explained to the patient and her friend's granddaughter, who helped translate. She is afebrile. Vital signs are stable. Her abdominal wounds are healing well. Her colostomy is pink. There are air and stool in the bag. Today, her creatinine is down to 2.3, which is likely her baseline. ASSESSMENT: 1. Perforated sigmoid diverticulitis, status post Reuben procedure, doing well, stable for discharge. 2. Severe hydronephrosis from extrinsic obstruction, status post stent placement by Dr. Ang. 3. Cervical mass, now biopsy shows squamous cell cancer, likely the reason why she has retroperitoneal scarring and obstruction. PLAN: There are no plans for the family to take her back to [place]. We probably should arrange for treatment to start here whatever that may be. We will wait for further recommendations from OB and will consult the oncologist as well. Job ID: [id number]
--- NOTE | 2018-10-23 16:28 | PRG ---
DATE OF SERVICE: 10/23/2018 INITIAL REASON FOR CONSULTATION: Bilateral hydronephrosis. Subsequent diagnoses; 1. Squamous cell carcinoma of the cervix. 2. 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 3. Bilateral ureteral obstruction secondary to malignancy. 4. Possible left ureteral calculus, which was not observed directly on ureteroscopy, N20.1. BRIEF HISTORY: Ms Svetlana Jc is a pleasant, Norwegian-speaking only 68-year-old female, who was admitted on 10/13/2018, with signs of acute or chronic renal insufficiency. The patient had no prior medical care. She did have about a 3-year history of bleeding in the postmenopausal state. The patient has also been evaluated in this hospitalization by Dr. Izaiah Raymundo, who is the admitting physician, who treated her for a sigmoid colon perforation with abscess formation. The patient underwent a sigmoid colectomy and left lower quadrant colostomy. The patient has had renal insufficiency and has been followed by Dr. Dimitry Swain, secondary to that. I was consulted on his request due to bilateral hydronephrosis. The patient on 10/19/2018, went to the operating room for evaluation. Prior to that, the patient has been evaluated by Dr. Adrian Flowers, of Gynecology, who performed physical examination, as well as biopsy of the cervix. The patient did present to the operating room on 10/19/2018 and underwent cystoscopic evaluation with ureteroscopy of the left ureter, balloon dilation as well, and had stents placed bilaterally. We aspirated fluid from the patient's left ureter, which has squamous cell carcinoma cells present within it suggesting invasion of the left ureter by squamous cell carcinoma. No cytology was collected on the right side as there was no particulars present in the urine from that site. The patient has at present bilateral indwelling polaris loop stents. She is doing well. Her pathology from the cervix returned with evidence of squamous cell carcinoma. PHYSICAL EXAMINATION: GENERAL: This is a pleasant, Norwegian-speaking only female evaluated supine in her hospital bed. HEAD, EYES, EARS, NOSE, AND THROAT: Extraocular movements are intact. Sclerae anicteric. Oropharynx is clear. NECK: Supple. LUNGS: Clear to auscultation bilaterally. CARDIAC: Regular rate and rhythm without murmur, rub, or gallop. The patient reports she has some right flank discomfort. ABDOMEN: Soft and nontender. There is left lower quadrant colostomy, which is producing gas and stool. LABORATORY STUDIES: The patient's last white count was obtained on 10/17/2018, white count was 17.6. There was a left shift with 93% neutrophils. Hemoglobin was 8.3 and hematocrit was 25.3. Serum chemistries have improved with stent placement minimally with current creatinine down to 2.38 and blood urea nitrogen stabilized at about 37. Potassium is in a normal range at 4.8. ASSESSMENT AND PLAN: 1. Squamous cell carcinoma of the cervix with invasion into the retroperitoneal space and invasion at least of the left ureter. The patient will need to undergo systemic type therapy as well as focal therapies. Most likely treatment in this setting would be radiation in combination with hormone suppression. The patient should be followed by Gynecology and Oncology for those treatments. 2. Obstruction of invasion of the left ureter and bilateral ureteral obstruction. The patient will need to have her stents exchanged as needed, which is used when biofilm occludes the stents. In my experience with most patients with this type of stent, which is intended for a 1 year indwelling time, the stents in females often times occlude around the 5 or 6-month. The patient should follow up in my office in about 5 months to schedule a 6-month bilateral stent exchange. Job ID: [id number]
--- NOTE | 2018-10-23 18:53 | PDOC.PN ---
- Subjective Encounter Start Date: 10/23/18 Encounter Start Time: 18:20 Patient reports so significant pain. Sitting up eating dinner. She understands cancer was found and that she needed a kidney procedure. No acute events today. - Objective Vital Signs & Weight: Vital Signs (12 hours) Temp Pulse Resp BP Pulse Ox 10/23/18 16:00 98.4 F 72 16 120/65 98 10/23/18 12:00 98.4 F 78 16 135/69 97 10/23/18 08:00 98.0 F 80 16 119/66 97 Weight Admit Weight 111 lb 5.335 oz Weight 119 lb 14.896 oz Most Recent Monitor Data Heart Rate from ECG 91 NIBP 125/64 NIBP BP-Mean 84 Respiration from ECG 21 SpO2 98 I&O: 10/22/18 10/23/18 10/24/18 06:59 06:59 06:59 Intake Total 196 047 3000 Output Total 5 1600 Balance 820 800 150 Result Diagrams: 10/17/18 05:04 10/23/18 05:55 Phys Exam - Physical Examination Constitutional: NAD HEENT: PERRLA, moist MMs Neck: full ROM Respiratory: clear to auscultation bilateral Cardiovascular: RRR Gastrointestinal: soft, non-tender Musculoskeletal: no edema Neurological: non-focal, moves all 4 limbs Psychiatric: normal affect Skin: no rash Dx/Plan (1) Cervical cancer Code(s): C53.9 - MALIGNANT NEOPLASM OF CERVIX UTERI, UNSPECIFIED Status: Acute Comment: Squamous cell per path report (2) KIM (acute kidney injury) Code(s): N17.9 - ACUTE KIDNEY FAILURE, UNSPECIFIED Status: Acute Comment: Post-obstructive with hydronephrosis secondary to cervical cancer, improving, renal following (3) UTI (urinary tract infection) Status: Acute Comment: Stop meropenam (4) Ureteral stricture Code(s): N13.5 - CROSSING VESSEL AND STRICTURE OF URETER W/O HYDRONEPHROSIS Status: Acute Comment: s/p ureteral stents by urology service (5) Perforated sigmoid colon Code(s): K63.1 - PERFORATION OF INTESTINE (NONTRAUMATIC) Status: Resolved - Plan * Chronic anemia noted, last WBC 17K on 10/17, check AM CBC * Cr stabilizing * Stop meropenam * Needs follow up with Dr Ang for 6 month stent change out * Unsure about timeline or mechanism for cancer follow up? Patient unclear if this was to happen in hospital or somehow coordinated after discharge. If CBC ok in the morning, would be stable medically for discharge pending cancer plan
[2018-10-24] MEDS: HYDROcodone/Acetaminophen 7.5/325 mg Tablet PO PRN ×3 (03:04→21:02)
[2018-10-24 04:56] LABS: #Eosinphils 0.2 thou/uL (0.0-0.7); #Lymphocytes 1.5 thou/uL (1.20-3.40); #Monocytes 0.8 thou/uL (0.11-0.59); #Neutrophils 8.3 thou/uL (1.40-6.50); %Basophils 0.2 % (0.0-1.0); %Eosinophils 1.8 % (0.0-10.0); %Lymphocytes 13.7 % (21.0-51.0); %Monocytes 7.7 % (0.0-10.0); %Neutrophils 76.7 % (42.0-75.0); Hemoglobin 8.5 g/dL (12.0-16.0); Mean Corpuscular HGB CONC 32.6 g/dL (32.0-36.0); Mean Corpuscular Hemoglobin 29.3 pg (27.0-31.0); Mean Corpuscular Volume 89.7 fL (78.0-98.0); Mean Platelet Volume 6.8 fL (7.4-10.4); Platelet Count 413 thou/uL (130-400); RBC Distribution Width 13.8 % (11.5-14.5); White Blood Cell (WBC) Count 10.8 thou/uL (4.8-10.8)
[2018-10-24 05:16] LABS: Anion Gap 12 mmol/L (10-20); BUN (Urea Nitrogen) 31 mg/dL (9.8-20.1); Calc. Creatinine Clearance 20 mL/min (70-130); Calcium 9.1 mg/dL (7.8-10.44); Carbon Dioxide 23 mmol/L (23-31); Chloride 105 mmol/L (98-107); Estimated GFR-MDRD 21; Glucose 104 mg/dL (80-115); Potassium 4.8 mmol/L (3.5-5.1); Sodium 135 mmol/L (136-145)
[2018-10-24] MEDS: Ferrous Gluconate 324 MG TAB PO SCH (08:59)
--- NOTE | 2018-10-24 09:53 | PRG ---
DATE OF SERVICE: 10/24/2018 SUBJECTIVE: The patient is status post diverting colostomy for perforated obstructed sigmoid diverticulitis, was found to have extrinsic compression. Biopsy showed squamous cell carcinoma consistent with cervical origin. She is doing fine. She is not having any pain. Her ostomy is working fine. She is tolerating a regular diet. Unfortunately, she is not a [place] citizen and we are unable to find a gynecological oncologist willing to accept her. PHYSICAL EXAMINATION: VITAL SIGNS: Temperature 98.6, pulse 69, blood pressure 114/68. GENERAL: Well-developed, well-nourished female, in no apparent distress. HEENT: She has an abrasion on her lower lip. Otherwise unremarkable. LUNGS: Clear. HEART: Regular rate and rhythm. ABDOMEN: Soft, nondistended, nontender. Ostomy is pink, working well. ASSESSMENT: Sigmoid diverticulitis and squamous cell carcinoma of the cervix. PLAN: Recommend palliative care. Probably discharge tomorrow. Job ID: [id number]
--- NOTE | 2018-10-24 11:06 | PRG ---
DATE OF SERVICE: 10/24/2018 SUBJECTIVE: Patient was seen and examined at bedside and overnight events noted. Patient denies any shortness of breath or chest pain or palpitation. No history of nausea or vomiting or diarrhea or fever or chills or cramps. OBJECTIVE: GENERAL: This is a thin-built female, in no apparent distress. VITAL SIGNS: Temperature 98.5. Heart rate 68. Respiratory rate 18. Blood pressure 116/61. HEENT: Atraumatic, normocephalic. Oral mucosa is moist NECK: Supple. CARDIOVASCULAR: S1, S2 heard. Rate and rhythm regular. RESPIRATORY: Clear to auscultation. GASTROINTESTINAL: Abdomen is soft. MUSCULOSKELETAL: No tenderness. No edema. DERMATOLOGIC: No skin rash. NEUROLOGIC: Alert and awake and oriented X3. No focal neurologic deficits. Moving all the extremities. PSYCHIATRIC: Mood and affect normal. LABORATORY DATA: Potassium is 4.8, BUN is 31, creatinine is 2.3. ASSESSMENT AND PLAN: 1. Acute kidney injury on chronic kidney disease, stage 4, stable. 2. Obstructive uropathy. Follow Urology. 3. Anemia. 4. Edema. Renal function is stable, seems like her baseline. We will follow. The patient was advised to follow up as outpatient. Job ID: [id number]
[2018-10-24] MEDS: traMADol HCl 50 MG TAB PO PRN ×2 (14:06→23:39)
--- NOTE | 2018-10-24 16:00 | PDOC.PN ---
- Subjective Encounter Start Date: 10/24/18 Encounter Start Time: 15:45 Subjective: f/u for cervical carcinoma with obstructive uropathy s/p ureteral stent -: placement and sigmoid diverticular perforation with diverting colostomy. -: Renal function slowly improving. - Objective MAR Reviewed: Yes Vital Signs & Weight: Vital Signs (12 hours) Temp Pulse Resp BP Pulse Ox 10/24/18 15:19 98.2 F 82 14 119/69 98 10/24/18 11:27 98.7 F 76 16 117/65 98 10/24/18 08:55 98 10/24/18 08:00 98.5 F 68 14 116/61 98 10/24/18 04:26 98.6 F 69 16 114/68 98 Weight Admit Weight 111 lb 5.335 oz Weight 119 lb 14.896 oz Most Recent Monitor Data Heart Rate from ECG 91 NIBP 125/64 NIBP BP-Mean 84 Respiration from ECG 21 SpO2 98 I&O: 10/23/18 10/24/18 10/25/18 06:59 06:59 06:59 Intake Total 800 1750 Output Total 1600 Balance 800 150 Result Diagrams: 10/24/18 04:43 10/24/18 04:43 Additional Labs: Microbiology 10/19/18 09:30 Urine Bacterial Culture - Final 10/19/18 09:30 Urine Anaerobic Culture - Final NO ANAEROBES ISOLATED IN 5 DAYS 10/19/18 09:15 Urine Bacterial Culture - Final 10/19/18 09:15 Urine Anaerobic Culture - Final NO ANAEROBES ISOLATED IN 5 DAYS 10/13/18 16:46 Urine garcia catheter Urine Culture - Final Escherichia coli Laboratory Tests 10/14/18 10/15/18 10/16/18 08:42 04:25 04:51 WBC 12.0 H 13.5 H 14.9 H Hgb 6.7 L 7.9 L 7.9 L Creatinine 10/17/18 10/17/18 10/18/18 05:04 10:13 11:19 WBC 17.6 H Hgb 8.3 L Creatinine 2.88 H 2.45 H 10/19/18 10/20/18 10/23/18 11:05 10:29 05:55 WBC Hgb Creatinine 2.28 H 2.49 H 2.38 H Phys Exam - Physical Examination Constitutional: NAD HEENT: PERRLA, sclera anicteric, oral pharynx no lesions Neck: no nodes, no JVD, supple, full ROM Respiratory: no wheezing, no rales, no rhonchi, clear to auscultation bilateral S1, S2 Cardiovascular: RRR, no significant murmur, no rub, gallop + ostomy in place Gastrointestinal: soft, non-tender, no distention, positive bowel sounds Musculoskeletal: no edema, pulses present Neurological: normal sensation, moves all 4 limbs Psychiatric: A&O x 3 Skin: normal turgor, cap refill <2 seconds Dx/Plan (1) KIM (acute kidney injury) Code(s): N17.9 - ACUTE KIDNEY FAILURE, UNSPECIFIED Status: Acute Comment: Post-obstructive with hydronephrosis secondary to cervical cancer, slow improvement (2) UTI (urinary tract infection) Status: Acute Comment: Completed tx with Meropenem (3) Ureteral stricture Code(s): N13.5 - CROSSING VESSEL AND STRICTURE OF URETER W/O HYDRONEPHROSIS Status: Acute Comment: s/p ureteral stents by urology service (4) Perforated sigmoid colon Code(s): K63.1 - PERFORATION OF INTESTINE (NONTRAUMATIC) Status: Acute Comment: s/p diverting colostomy, stable currently - Plan 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
[2018-10-25 06:57] LABS: Anion Gap 12 mmol/L (10-20); BUN (Urea Nitrogen) 30 mg/dL (9.8-20.1); Calc. Creatinine Clearance 16 mL/min (70-130); Calcium 9.5 mg/dL (7.8-10.44); Carbon Dioxide 23 mmol/L (23-31); Chloride 103 mmol/L (98-107); Estimated GFR-MDRD 20; Glucose 101 mg/dL (80-115); Potassium 4.4 mmol/L (3.5-5.1); Sodium 134 mmol/L (136-145)
[2018-10-25] MEDS: Ferrous Gluconate 324 MG TAB PO SCH (09:44)
[2018-10-25] MEDS: HYDROcodone/Acetaminophen 7.5/325 mg Tablet PO PRN ×2 (10:48→17:27)
--- NOTE | 2018-10-25 13:53 | DIS ---
DATE OF ADMISSION: 10/13/2018 DATE OF DISCHARGE: 10/25/2018 DISCHARGE DIAGNOSES: Sigmoid perforation due to diverticulitis, metastatic cervical cancer. PROCEDURES DURING ADMISSION: Exploratory laparotomy, sigmoid colectomy, Reuben's procedure, biopsy of pelvic mass. HOSPITAL COURSE: The patient was admitted with free air, taken to the operating room, underwent exploratory laparotomy, was found to have a perforated colon, underwent a Reuben's procedure. Gynecology and Urology were consulted as she had an obstructed ureter on the left, it was due to a mass in the pelvis, which came back squamous cell carcinoma consistent with cervical primary. She had a retrograde pyelogram and stent placed. She is doing well now. Her ostomy is working well. She is being discharged in good condition on hydrocodone. She will follow up with Dr. Raymundo in [address] Ang in 2 weeks. Job ID: [id number]
[2018-10-25 15:40] VITALS: BP 129/74; TEMP 98.3
--- NOTE | 2018-10-25 16:07 | PRG ---
DATE OF SERVICE: 10/25/2018 SUBJECTIVE: Patient was seen and examined at bedside and overnight events noted. Patient denies any shortness of breath or chest pain or palpitation. No history of nausea or vomiting or diarrhea or fever or chills or cramps. OBJECTIVE: GENERAL: This is a well built female, in no apparent distress. VITAL SIGNS: HEENT: Atraumatic, normocephalic. Oral mucosa is moist. NECK: Supple. CARDIOVASCULAR: S1, S2 heard. Rate and rhythm regular. RESPIRATORY: Clear to auscultation. GASTROINTESTINAL: Abdomen is soft. MUSCULOSKELETAL: No tenderness. No edema. DERMATOLOGIC: No skin rash. NEUROLOGIC: Alert and awake and oriented X3. No focal neurologic deficits. Moving all the extremities. PSYCHIATRIC: Mood and affect normal. LABORATORY DATA: Potassium is 4.4, BUN is 30, and creatinine 2.4. ASSESSMENT AND PLAN: 1. Acute kidney injury, stable. 2. Chronic . Job ID: [id number]
--- NOTE | 2018-10-26 02:37 | DIS ---
DATE OF ADMISSION: 10/13/2018 DATE OF DISCHARGE: 10/25/2018 DISCHARGE DIAGNOSES: 1. Acute kidney injury, postobstructive with hydronephrosis secondary to metastatic cervical cancer. 2. Urinary tract infection status post treatment with meropenem. 3. Ureteral stricture status post ureteral stent placement. 4. Sigmoid perforation secondary to diverticulitis. 5. Status post exploratory laparotomy with sigmoid colectomy and diverting colostomy. PRIMARY SERVICE ATTENDIN. Dr. Raymundo and Dr. Zhang with General Surgery Service. 2. [facility] group for medical consultation. 3. Dr. Mancia with Pulmonary Critical Care Service. 4. Dr. Swain and Dr. Fuller with Nephrology Service. 5. Dr. Ang with Urology Service. PERTINENT LAB AND X-RAY FINDINGS: Sodium ranged between 133 to 138. Creatinine ranged between 2.28 to 5.74. Estimated GFR ranged between 7 to 21. Serum iron level less than 8, TIBC 130, ferritin 150. Vitamin B12 level greater than 2000, folate 2.80. CBC showed a white blood cell count ranging between 10.8 to 17.6, hemoglobin ranged between 6.0 to 8.5. Hepatitis B negative on 10/14/2018. Blood cultures x2 dated 10/13/2018 showed no growth at 5 days. Urine culture dated 10/13/2018, showed greater than 100,000 colonies of E coli. Urine culture dated 10/19/2018, negative at 5 days. HOSPITAL COURSE: The patient was initially admitted after initially presenting with nausea, vomiting, and abdominal pain. The patient underwent CT imaging of the abdomen and pelvis showing free air in the right lower quadrant. The patient was diagnosed with ruptured viscus and admitted under the General Surgery Service. The patient underwent exploratory laparotomy proceeding to sigmoid colectomy with colostomy on 10/13/2018. The patient was managed postoperatively with consultations with Urology, Pulmonology Critical Care Service, and Nephrology Service. The patient was managed with IV antibiotic therapy as well as for acute kidney injury. The patient was evaluated by the Urology Service with recommendations to undergo ureteral stent placement due to extrinsic mass effect due to metastatic cervical carcinoma. Bilateral ureteral stents were placed and the patient was monitored with serial creatinine and urine output. The patient's overall creatinine did improve during the hospital course with a discharge level at 2.42. The patient was noted with squamous cell carcinoma in situ from cervical biopsy obtained during the ureteral stent placement procedure. Current recommendations are to pursue further workup after the patient returns to her home country of [place]. Overall, the patient remained clinically stable postoperatively, tolerating regular oral intake and ambulating without assistance or difficulty. I have examined the patient at the time of discharge with followup instructions given. The patient ready for discharge on 10/25/2018. DISCHARGE MEDICATIONS: 1. Ferrous gluconate 324 mg p.o. daily. 2. Tramadol 50 mg p.o. q.6 hours p.r.n. FOLLOWUP: The patient may follow up with Dr. Raymundo if remaining in the [facility] area. The patient may also follow up with Dr. Dinh Ang with Urology Service. CONDITION ON DISCHARGE: Guarded. ACTIVITY: Ad-janette. DIET: Regular. CODE STATUS: Full. DISPOSITION: Discharged home, 10/25/2018. Job ID: [id number]
--- NOTE | 2018-10-28 11:45 | PQF ---
Svetlana JcDYLON DO [id number] SURG [id number] CLINICAL DOCUMENTATION CLARIFICATION FORM: POST DISCHARGE DATE: 10/28/2018 ATTN: Dr. Doty Please exercise your independent, professional judgment in responding to the clarification form. Clinical indicators are provided on the bottom of this form for your review Please check appropriate box(s) to clarify if the following diagnosis has been ruled in or ruled out: Severe Sepsis [ ] Ruled in diagnosis [ ] Continue to treat [ ] Resolved [ x ] Ruled out diagnosis [ ] Cannot rule out diagnosis [ ] Other diagnosis (please specify) [ ] Unable to determine In addition, please specify: Present on Admission (POA): [ ] Yes [ x ] No [ ] Unable to determine For continuity of documentation, please document condition throughout progress notes and discharge summary. Thank You. CLINICAL INDICATORS - SIGNS / SYMPTOMS / LABS Per 10/14 pulmonary consult (Clara): Reason for consult: Sepsis. Interpretation: Metabolic acidosis. Plan: 1) Severe sepsis 2/2 perforated viscous . Per 10/15-10/16 Pulmonary PN (Gavino): Assessment. Severe Sepsis, resolving. Per 10/17 consult (Boy) Assessment: "Sepsis with persistent elevated white blood cell count (Leukocytosis of 17,000) and recurrent fevers (101 this morning)". RISK FACTORS (per progress notes) Perforated sigmoid diverticulitis. Escherichia Coli urinary tract infection. TREATMENTS Per 10/14 pulmonary consult (Clara): Current Medications: Metroniadazole 500 mg. 100 mls/hr IVPB Q6hr. Ciprofloxain 400 mg. 200 mls/hr IVPB 1000 SANDRA. (This form is maintained as a part of the permanent medical record) 2014 [employer] All Rights Reserved [place] [phone] MTDRhoda
== END 2018-10-25 18:00 | disposition home or self-care (01) | DRG 330 ==
LOC: ERS 13:44 → CCU 19:49 → SURG A 10-16 12:31
PROVIDERS: ADMIT Surgery; ATTEND Surgery
PROC: 0DBN0ZZ Excision of Sigmoid Colon, Open Approach (ICD-10-PCS; principal; 2018-10-13)
PROC: 0D1M0Z4 Bypass Descending Colon to Cutaneous, Open Approach (ICD-10-PCS; 2018-10-13)
PROC: 0UBC7ZX Excision of Cervix, Via Natural or Artificial Opening, Diagnostic (ICD-10-PCS; 2018-10-13)
PROC: 0T788DZ Dilation of Bilateral Ureters with Intraluminal Device, Via Natural or Artificial Opening Endoscopic (ICD-10-PCS; 2018-10-19)
PROC: 0UBC8ZX Excision of Cervix, Via Natural or Artificial Opening Endoscopic, Diagnostic (ICD-10-PCS; 2018-10-19)
DX: K57.20 Diverticulitis of large intestine with perforation and abscess without bleeding (principal); N17.9 Acute kidney failure, unspecified; C79.19 Secondary malignant neoplasm of other urinary organs; N18.4 Chronic kidney disease, stage 4 (severe); N13.39 Other hydronephrosis; E87.1 Hypo-osmolality and hyponatremia; E87.2 Acidosis; N39.0 Urinary tract infection, site not specified; N20.1 Calculus of ureter; C53.9 Malignant neoplasm of cervix uteri, unspecified; E87.5 Hyperkalemia; D50.9 Iron deficiency anemia, unspecified; B96.20 Unspecified Escherichia coli [E. coli] as the cause of diseases classified elsewhere
CPT/HCPCS: 36415; 36416; 36430; 51702; 71046; 74176; 74420; 80048; 80053; 81003; 81015; 82607; 82728; 82746; 82805; 83540; 83550; 83605; 83690; 83735; 84100; 85025; 86706; 86850; 86900; 86901; 87040; 87070; 87077; 87086; 87186; 87205; 87340; 88112; 88305; 88307; 88341; 88342; 88360; 93005; 93010; 93970; 96365; 96367; 96375; C1752; C1758; C1769; G0365; J0131; J0744; J1100; J2001; J2185; J2270; J2405; J2543; J2704; J3010; J3370; J3475; J7070; P9016; Q4081; Q9961; S0028